=== PATIENT | male | born 1935 | race Hispanic/Latino ===

== ENCOUNTER 2016-12-24 11:31 | Observation (INO) | payer MEDICARE ==
[2016-12-24 11:34] VITALS: BMI 40.4
--- NOTE | 2016-12-24 11:58 | ED PDOC ---
Arrival/HPI - General Time Seen by Provider: 12/24/16 11:32 Historian: Patient - History of Present Illness Narrative History of Present Illness (Text): 12/24/16 11:44 Lloyd Kaur is a 81 year old male, whose past medical history includes diabetes, hypertension, hyperlipidemia, renal insufficiency, and colon cancer in remission, presents to the emergency department complaining of chest discomfort. Patient states that he woke up this morning with chest discomfort that radiates to his upper back and feels like a "pulled muscle". He also says he feels a pulsing sensation in his jaw. He notes a similar discomfort that was very intense last week as well and says his BP has been elevated at home. He notes that he is currently taking antibiotics for his dry cough. Patient denies shortness of breath, headache, dizziness, fever, chills, nausea, vomiting , diarrhea, diaphoresis, jaw pain, lower extremity pain/swelling, or other complaints. Decorating Inspector: Dr. Upton PMD: Dr. Briggs Time/Duration: Prior to Arrival Symptom Onset: Sudden Symptom Course: Unchanged Quality: Aching (back) Activities at Onset: Sleeping Modifying Factors (Text): None Context: Home Associated Symptoms (Text): backache Past Medical History - Provider Review Nursing Documentation Reviewed: Yes - Tetanus Immunization Tetanus Immunization: Unknown - Cardiac Hx Pacemaker: No - Neurological Hx Paralysis: No - Renal Hx Renal Failure: (renal insuff) - Endocrine/Metabolic Hx Diabetes Mellitus Type 2: Yes - Hematological/Oncological Hx Blood Transfusions: Yes Hx Blood Transfusion Reaction: No - Musculoskeletal/Rheumatological Hx Musculoskeletal Disorders: Yes - Genitourinary/Gynecological Hx Reproductive Disorders: No - Psychiatric Hx Substance Use: No - Surgical History Hx Joint Replacement: Yes (bilateral knees, left hip) Hx Orthopedic Surgery: Yes Other/Comment: filter - Anesthesia Hx Anesthesia Reactions: Yes Hx Malignant Hyperthermia: No - Suicidal Assessment Feels Threatened In Home Enviroment: No Family/Social History - Physician Review Nursing Documentation Reviewed: Yes Family/Social History: Unknown Family HX Smoking Status: Unknown If Ever Smoked Hx Alcohol Use: No Hx Substance Use: No Allergies/Home Meds Allergies/Adverse Reactions: Allergies No Known Allergies Allergy (Verified 12/24/16 11:58) Home Medications: Home Meds Medication Instructions Recorded Confirmed Furosemide [Lasix] 20 mg PO QAM 02/27/16 12/24/16 Glipizide [Glipizide ER] 10 mg PO QAM 02/27/16 12/24/16 Magnesium Oxide [Mgo] 400 mg PO BID 02/27/16 12/24/16 Valsartan [Diovan] 160 mg PO QAM 02/27/16 12/24/16 Warfarin [Coumadin] 7.5 mg PO ONCE 02/27/16 12/24/16 Allopurinol [Zyloprim] 100 mg PO DAILY 12/24/16 12/24/16 Warfarin [Coumadin] 10 mg PO 1800 12/24/16 12/24/16 Review of Systems - Review of Systems Constitutional: Normal. absent: Fevers Eyes: absent: Vision Changes ENT: Normal Respiratory: Cough (dry cough). absent: SOB Cardiovascular: Chest Pain Gastrointestinal: Normal. absent: Nausea, Vomiting Genitourinary Male: Normal. absent: Dysuria Musculoskeletal: Back Pain Skin: Normal Neurological: absent: Headache, Dizziness Endocrine: Normal Hemo/Lymphatic: Normal Psychiatric: Normal Physical Exam Vital Signs Reviewed: Yes Vital Signs Temp Pulse Pulse Resp BP Pulse Ox 12/24/16 11:48 98.1 F 74 17 158/77 H 96 12/24/16 11:35 72 Temperature: Afebrile Blood Pressure: Hypertensive Pulse: Regular Respiratory Rate: Normal Appearance: Positive for: Well-Appearing, Non-Toxic, Comfortable Pain Distress: None Mental Status: Positive for: Alert and Oriented X 3 - Systems Exam Head: Present: Atraumatic, Normocephalic Pupils: Present: PERRL Conjunctiva: Present: Normal Mouth: Present: Moist Mucous Membranes Pharnyx: Present: Normal. No: ERYTHEMA, EXUDATE, Peritonsilar Swelling Neck: Present: Normal Range of Motion Respiratory/Chest: Present: Clear to Auscultation, Good Air Exchange. No: Respiratory Distress, Accessory Muscle Use Cardiovascular: Present: Regular Rate and Rhythm, Normal S1, S2. No: Murmurs Abdomen: Present: Normal Bowel Sounds. No: Tenderness, Distention, Peritoneal Signs Back: Present: Normal Inspection Upper Extremity: Present: Normal Inspection. No: Cyanosis, Edema Lower Extremity: Present: Edema (trace edema bilaterally ) Neurological: Present: GCS=15, CN II-XII Intact, Speech Normal Skin: Present: Warm, Dry, Normal Color. No: Rashes Psychiatric: Present: Alert, Oriented x 3, Normal Insight, Normal Concentration Medical Decision Making ED Course and Treatment: 12/24/16 11:44 Impression: 81 year old male with chest pain discomfort that radiates to the back. Differential Diagnosis included but are not limited to: ACS vs. uncontrolled hypertension Plan: -- EKG -- Chest X-ray -- Urinalysis -- Labs -- Aspirin -- Reassess and disposition Progress Notes: EKG: Ordered, reviewed, and independently interpreted the EKG. Rate : 72 BPM Rhythm : NSR Interpretation : Multiple PVCs. First-degree AV block. QRS at 104. Normal axis. Inverted T wave and LVA is more pronounced with previous EKG. No ST/T changes. Comparison : 09/02/2014 Chest X-ray: No Acute Disease as read by me. 12/24/16 14:21 Patient with noted complaints. EKG is essentially unchanged from previous. First set of CE negative. Given the recurrence of discomfort over the past week and multiple ACS risk factors, will need further observation on tele and cardiology assessment. Patient reports some back pain as well but described as a pulling sensation and changes with position, so less likely to be dissection, the study for which is not easily obtainable given his renal insufficiency and should not get a CTA. Given asa here in the ED. Case discussed with Dr. Patel , covering Dr. Upton. - Lab Interpretations Lab Results: 12/24/16 12:34 12/24/16 12:34 Lab Results 12/24/16 12:34: Sodium 140, Potassium 4.5, Chloride 103, Carbon Dioxide 27, Anion Gap 15, BUN 26 H, Creatinine 1.5 H, Est GFR ( Amer) 55, Est GFR ( Non-Af Amer) 45, Random Glucose 141 H, Calcium 9.2, Magnesium 2.1, Total Bilirubin 0.9, AST 22, ALT 31, Alkaline Phosphatase 72, Lactate Dehydrogenase 404, Total Creatine Kinase 96, Troponin I < 0.01, NT-Pro-B Natriuret Pep 192, Total Protein 7.4, Albumin 4.0, Globulin 3.4, Albumin/Globulin Ratio 1.2, Lipase 152 12/24/16 12:34: PT 17.9 H, INR 1.66 H, APTT 35.2 H 12/24/16 12:34: WBC 6.8, RBC 4.34, Hgb 14.0, Hct 41.7 L, MCV 96.1, MCH 32.3, MCHC 33.6, RDW 14.8 H, Plt Count 120, MPV 11.4 H, Gran % 61.6, Lymph % (Auto) 31.0, Grand % (Auto) 6.6 H, Eos % (Auto) 0.7 L, Baso % (Auto) 0.1, Gran # 4.16, Lymph # 2.1, Grand # 0.5, Eos # 0.1, Baso # 0.01 I have reviewed the lab results: Yes - RAD Interpretation Radiology Orders: 12/24/16 12:17 CHEST TWO VIEWS (PA/LAT) [RAD] Stat Interior Design Teacher: ED Physician - EKG Interpretation Interpreted by ED Physician: Yes Type: 12 lead EKG - Medication Orders Current Medication Orders: Discontinued Medications Aspirin (Aspirin Chewable) 324 mg PO STAT STA Stop: 12/24/16 11:55 Last Admin: 12/24/16 12:11 Dose: 324 mg - Scribe Statement The provider has reviewed the documentation as recorded by the Scribe 12/24/2016 Jo Lehman Provider Scribe Attestation: All medical record entries made by the Scribe were at my direction and personally dictated by me. I have reviewed the chart and agree that the record accurately reflects my personal performance of the history, physical exam, medical decision making, and the department course for this patient. I have also personally directed, reviewed, and agree with the discharge instructions and disposition. Disposition/Present on Arrival - Present on Arrival Any Indicators Present on Arrival: Yes History of DVT/PE: Yes History of Uncontrolled Diabetes: Yes Urinary Catheter: No History Surgical Site Infection Followin - Disposition Have Diagnosis and Disposition been Completed?: Yes Diagnosis: Chest pain Disposition: HOSPITALIZED Disposition Time: 13:35 Patient Plan: Observation Condition: FAIR
[2016-12-24 12:40] LABS: BASO # 0.01 K/mm3 (0.0-2.0); BASO % 0.1 % (0.0-3.0); EOS # 0.1 (0.0-0.7); EOS % 0.7 % (1.5-5.0); GRAN # 4.16 (1.4-6.5); GRAN % 61.6 % (50.0-68.0); LYMPH # 2.1 (1.2-3.4); MEAN CELL VOLUME 96.1 fL (80.0-105.0); MEAN CORPUSCULAR HEMOGLOBIN 32.3 pg (25.0-35.0); MEAN CORPUSCULAR HGB CONC 33.6 g/dl (31.0-37.0); MEAN PLATELET VOLUME 11.4 fl (7.0-11.0); MONO # 0.5 (0.1-0.6); MONO % 6.6 % (1.0-6.0); PLATELET COUNT 120 10^3/uL (120.0-450.0); RBC 4.34 10^6/uL (3.5-6.1); RED CELL DISTRIBUTION WIDTH 14.8 % (11.5-14.5); WHITE BLOOD COUNT 6.8 10^3/ul (4.5-11.0)
[2016-12-24 12:50] LABS: ALB/GLOB RATIO 1.2 (1.1-1.8); ALT/SGPT 31 U/L (7-56); AST/SGOT 22 U/L (15-59); BLOOD UREA NITROGEN 26 mg/dL (7-21); CALCIUM 9.2 mg/dL (8.4-10.5); GFR AFRICAN-AMERICAN 55; GFR NON-AFRICAN AMERICAN 45; LIPASE 152 U/L (23-300); MAGNESIUM 2.1 mg/dL (1.7-2.2)
[2016-12-24 12:51] LABS: INR 1.66 (0.93-1.08); PARTIAL THROMBOPLASTIN TIME 35.2 Seconds (23.7-30.8); PROTHROMBIN TIME 17.9 Seconds (9.9-11.8)
[2016-12-24 13:00] LABS: B-TYPE NATRIURETIC PEPTIDE 192 pg/mL (0-450)
[2016-12-24 13:01] LABS: TROPONIN I < 0.01 ng/mL
--- NOTE | 2016-12-24 14:36 | RAD ---
HISTORY: chest pain COMPARISON: 12/20/2016 TECHNIQUE: Chest PA and lateral FINDINGS: LUNGS: No active pulmonary disease. PLEURA: No significant pleural effusion identified. No pneumothorax apparent. CARDIOVASCULAR: Normal. OSSEOUS STRUCTURES: No significant abnormalities. VISUALIZED UPPER ABDOMEN: Normal. OTHER FINDINGS: None. IMPRESSION: No active disease.
[2016-12-24] MEDS ORDERED: Insulin Reg-MEDIUM-Coverage SC SCH (16:30)
[2016-12-24] MEDS ORDERED: Pneumococcal 23-Valent Vaccine IM ONE (17:20)
[2016-12-24] MEDS ORDERED: Pantoprazole 40 mg EC Tab PO SCH (18:00)
--- NOTE | 2016-12-24 18:25 | CP.PCM.HP ---
<BernardGael rand - Last Filed: 12/24/16 18:38> History of Present Illness - History of Present Illness History of Present Illness: This patient is a 81 year old male who presented to the ED today complaining of symptoms of palpitations that woke him up from his sleep and mild chest pain. Patient states that he has experienced these symptoms before last week. When he called his primary (Dr. Hsieh) about the palpitation he told him to go to ED next time it happened. Patient described the pain as mild,dull, and non- radiating. Patient Denies any dizziness, lightheadedness, SOB, Abd Pain, N/V/D, constipation, motor or sensory loss, bowel incontinence, urinary incontinence, or blurry vision PMHx - HTN, Diabetes, HLD, Renal Insufficiency, Lumbar Spinal Stenosis, Lupus AC , and Colon Cancer (in remission) PSHx - B/L knee replacement, Left Hip Replacement, Colectemy Allergies - NKDA Recent Hospitilizations - Denies Fam Hx: Denies Social History. Denies Illicit Drugs/Alcohol. Drinks 1 or 2 cups of coffee a day. 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 Quit 40 years ago. Present on Admission - Present on Admission Any Indicators Present on Admission: No History of DVT/PE: No Review of Systems - Review of Systems All systems: reviewed and no additional remarkable complaints except - Constitutional Constitutional: As Per HPI - EENT Eyes: As Per HPI - Cardiovascular Cardiovascular: As Per HPI - Respiratory Respiratory: As Per HPI - Gastrointestinal Gastrointestinal: As Per HPI - Genitourinary Genitourinary: As Per HPI - Endocrine Endocrine: As Per HPI Past Patient History - Tetanus Immunizations Tetanus Immunization: Unknown - Past Social History Smoking Status: Former Smoker - CARDIAC Hx Cardiac Disorders: Yes Hx Cardia Arrhythmia: Yes (AFIB) Hx Hypercholesterolemia: Yes Hx Pacemaker: No Hx Peripheral Edema: Yes - PULMONARY Hx Respiratory Disorders: Yes (SMOKED CIGARETTES QUIT 40 YRS AGO.) - NEUROLOGICAL Hx Paralysis: No - RENAL Hx Chronic Kidney Disease: Yes Hx Renal Failure: (renal insuff) - ENDOCRINE/METABOLIC Hx Endocrine Disorders: Yes Hx Diabetes Mellitus Type 2: Yes - HEMATOLOGICAL/ONCOLOGICAL Hx Blood Transfusions: Yes Hx Blood Transfusion Reaction: No - INTEGUMENTARY Hx Dermatological Problems: Yes (BILATERAL LEG EDEMA PITTING +3SKIN DRYNESS) - MUSCULOSKELETAL/RHEUMATOLOGICAL Hx Musculoskeletal Disorders: Yes Hx Falls: Yes Hx Spinal Stenosis: Yes Hx Unsteady Gait: Yes - GENITOURINARY/GYNECOLOGICAL Hx Reproductive Disorders: No - PSYCHIATRIC Hx Psychophysiologic Disorder: No Hx Substance Use: No - SURGICAL HISTORY Hx Surgeries: Yes Hx Joint Replacement: Yes (bilateral knees, left hip) Hx Orthopedic Surgery: Yes Other/Comment: filter - ANESTHESIA Hx Anesthesia Reactions: Yes Hx Malignant Hyperthermia: No Meds Allergies/Adverse Reactions: Allergies Allergy/AdvReac Type Severity Reaction Status Date / Time No Known Allergies Allergy Verified 12/24/16 15:57 Physical Exam - Constitutional Appears: Non-toxic, No Acute Distress - Head Exam Head Exam: ATRAUMATIC, NORMOCEPHALIC - Eye Exam Eye Exam: EOMI - Respiratory Exam Respiratory Exam: Clear to Auscultation Bilateral. absent: Rales, Rhonchi, Wheezes, Stridor - Cardiovascular Exam Cardiovascular Exam: RRR, +S1, +S2. absent: JVD, +S4 - GI/Abdominal Exam GI & Abdominal Exam: Normal Bowel Sounds, Soft. absent: Organomegaly, Tenderness - Extremities Exam Extremities exam: Negative for: pedal edema, tenderness - Back Exam Additional comments: Paraspinal tendeness in Lumbar spine - Neurological Exam Neurological exam: Alert, CN II-XII Intact, Oriented x3 - Psychiatric Exam Psychiatric exam: Normal Affect, Normal Mood - Skin Skin Exam: Dry, Intact, Normal Color, Warm Results - Vital Signs Recent Vital Signs: Last Vital Signs Temp 98.8 F 12/24/16 16:55 Pulse 70 12/24/16 16:55 Resp 17 12/24/16 16:55 BP 152/90 H 12/24/16 16:55 Pulse Ox 96 12/24/16 15:28 - Labs Result Diagrams: 12/24/16 12:34 12/24/16 12:34 Assessment & Plan - Assessment and Plan (Free Text) Assessment: 81 year old male who presented with palpitations and mild dull chest pain. Admitted for R/O ACS Plan: 1. R/O ACS -EKG. F/U on Read -Troponin series (negative 1st set) -TSH Coumadin 10 -ASA (Given) -Telemetry -Heart Healthy Diet -Cardio Consult (Chelo) -CBC/CMP in AM 2. HTN -Cont Home medication of Diovan 3. Diabetes -Cont. Glipizide. 4.Lupus AC - Coumadin 5. CKD -Furosemide - Date & Time Date: 12/24/16 Time: 18:40 Decision To Admit - . Bed Request Type: Telemetry <Krystina Covington - Last Filed: 12/24/16 21:29> Results - Vital Signs Recent Vital Signs: Last Vital Signs Temp 96.5 F L 12/24/16 18:00 Pulse 76 12/24/16 18:00 Resp 20 12/24/16 18:00 BP 150/88 12/24/16 18:00 Pulse Ox 96 12/24/16 15:28 - Labs Result Diagrams: 12/24/16 12:34 12/24/16 12:34 Labs: Laboratory Results - last 24 hr 12/24/16 12/24/16 12/24/16 18:20 18:23 18:30 POC Glucose (mg/dL) 136 H Troponin I Free T4 1.00 TSH 3rd Generation 2.03 Urine Color Yellow Urine Appearance Clear Urine pH 6.0 Ur Specific [place] 1.025 Urine Protein 30 H Urine Glucose (UA) Negative Urine Ketones Negative Urine Blood Trace-intact H Urine Nitrate Negative Urine Bilirubin Negative Urine Urobilinogen 0.2 Ur Leukocyte Esterase Negative Urine RBC 1 - 3 Urine WBC 0 - 2 12/24/16 18:30 POC Glucose (mg/dL) Troponin I < 0.01 Free T4 TSH 3rd Generation Urine Color Urine Appearance Urine pH Ur Specific [place] Urine Protein Urine Glucose (UA) Urine Ketones Urine Blood Urine Nitrate Urine Bilirubin Urine Urobilinogen Ur Leukocyte Esterase Urine RBC Urine WBC Attending/Attestation - Attestation I have personally seen and examined this patient.: Yes I have fully participated in the care of the patient.: Yes I have reviewed all pertinent clinical information: Yes Notes (Text): 12/24/16 21:22 81 year old male with past medical history of hypertension, diabetes, CKD, and history of lupus AC on coumadin presents today with complaint of palpitations and chest pain. EKG showed SR with PVCs. Will admit to telemetry unit to rule out ACS. Continue with telemetry monitoring for arrythmias. Serial cardiac enzymes are ordered and cardiology evaluation is requested. He reports he had a recent echo within the past year with his senior laboratory technician which we can review in AM. TFTs are normal. Continue with home medications for hypertension and diabetes. CKD is stable. He is on anticoagulation with coumadin at 7.5 to 10 mg at home. INR is 1.66 so he will get 10 mg tonight and repeat INR in AM. Krystina Covington MD Hospitalist.
[2016-12-24 18:31] LABS: URINE BILIRUBIN NEGATIVE (NEGATIVE); URINE BLOOD TRACE-INTACT (NEGATIVE); URINE GLUCOSE (UA) NEGATIVE (NEGATIVE); URINE LEUKOCYTE ESTERASE NEGATIVE Leu/uL (NEGATIVE); URINE NITRATE NEGATIVE (NEGATIVE); URINE PROTEIN 30 mg/dL (<30 mg/dL); URINE UROBILINOGEN 0.2 E.U./dL (<1 E.U./dL)
[2016-12-24 18:41] LABS: URINE APPEARANCE CLEAR (CLEAR); URINE COLOR YELLOW (YELLOW)
[2016-12-24 18:53] LABS: URINE WBC 0 - 2 /hpf (0-6)
--- NOTE | 2016-12-24 19:06 | CARD ---
APPROVED REPORT EKG Measurement Heart [id number] <Conclusion> Sinus rhythm with 1st degree AV block with occasional premature ventricular complexes Otherwise normal ECG
[2016-12-25 04:38] LABS: ALB/GLOB RATIO 1.2 (1.1-1.8); ALBUMIN 3.8 g/dL (3.0-4.8); ALT/SGPT 32 U/L (7-56); AST/SGOT 24 U/L (15-59); BLOOD UREA NITROGEN 22 mg/dL (7-21); CALCIUM 8.9 mg/dL (8.4-10.5); GFR AFRICAN-AMERICAN 59; GFR NON-AFRICAN AMERICAN 49
[2016-12-25 04:41] LABS: BASO # 0.02 K/mm3 (0.0-2.0); BASO % 0.3 % (0.0-3.0); EOS # 0.2 (0.0-0.7); EOS % 2.3 % (1.5-5.0); GRAN # 3.23 (1.4-6.5); GRAN % 48.5 % (50.0-68.0); LYMPH # 2.7 (1.2-3.4); LYMPH % 40.8 % (22.0-35.0); MEAN CELL VOLUME 96.3 fL (80.0-105.0); MEAN CORPUSCULAR HEMOGLOBIN 32.3 pg (25.0-35.0); MEAN CORPUSCULAR HGB CONC 33.6 g/dl (31.0-37.0); MEAN PLATELET VOLUME 10.7 fl (7.0-11.0); MONO # 0.5 (0.1-0.6); MONO % 8.1 % (1.0-6.0); PLATELET COUNT 121 10^3/uL (120.0-450.0); RBC 4.33 10^6/uL (3.5-6.1); RED CELL DISTRIBUTION WIDTH 14.7 % (11.5-14.5); WHITE BLOOD COUNT 6.7 10^3/ul (4.5-11.0)
[2016-12-25 04:47] LABS: INR 1.63 (0.93-1.08); PARTIAL THROMBOPLASTIN TIME 34.4 Seconds (23.7-30.8); PROTHROMBIN TIME 17.6 Seconds (9.9-11.8)
[2016-12-25 04:55] LABS: TROPONIN I < 0.01 ng/mL
[2016-12-25 06:14] VITALS: O2SAT 98
[2016-12-25] MEDS ORDERED: Pantoprazole 40 mg EC Tab PO SCH (07:30)
[2016-12-25 09:04] LABS: HDL CHOLESTEROL 22 mg/dL (29-60)
[2016-12-25 09:15] LABS: LDL CHOLESTEROL 69 mg/dL (0-129)
[2016-12-25] MEDS ORDERED: GlipiZIDE 2.5 mg SR Tab PO SCH (10:00)
[2016-12-25] MEDS ORDERED: Non Formulary Medication (Valsartan [Diovan] 160 MG) PO SCH (10:00)
[2016-12-25] MEDS ORDERED: GlipiZIDE 10 mg SR Tab PO SCH (10:00)
[2016-12-25 12:39] VITALS: BP 165/83; PULSE 69; RESP 20; TEMP 98.3
--- NOTE | 2016-12-25 14:23 | CP.PCM.DIS ---
<Gael Stewart - Last Filed: 12/25/16 14:15> Provider - Provider Date of Admission: 12/24/16 13:50 Attending physician: Izaiah Aguirre MD Primary care physician: Kvng Briggs MD Consults: Cardio - Dr. Crockett/Dr. Upton Time Spent in preparation of Discharge (in minutes): 35 Hospital Course - Lab Results Lab Results: Most Recent Lab Values WBC 6.7 10^3/ul (4.5-11.0) 12/25/16 04:05 RBC 4.33 10^6/uL (3.5-6.1) 12/25/16 04:05 Hgb 14.0 gm/dL (14.0-18.0) 12/25/16 04:05 Hct 41.7 % (42.0-52.0) L 12/25/16 04:05 MCV 96.3 fL (80.0-105.0) 12/25/16 04:05 MCH 32.3 pg (25.0-35.0) 12/25/16 04:05 MCHC 33.6 g/dl (31.0-37.0) 12/25/16 04:05 RDW 14.7 % (11.5-14.5) H 12/25/16 04:05 Plt Count 121 10^3/uL (120.0-450.0) 12/25/16 04:05 MPV 10.7 fl (7.0-11.0) 12/25/16 04:05 Gran % 48.5 % (50.0-68.0) L 12/25/16 04:05 Lymph % (Auto) 40.8 % (22.0-35.0) H 12/25/16 04:05 Davidson % (Auto) 8.1 % (1.0-6.0) H 12/25/16 04:05 Eos % (Auto) 2.3 % (1.5-5.0) 12/25/16 04:05 Baso % (Auto) 0.3 % (0.0-3.0) 12/25/16 04:05 Gran # 3.23 (1.4-6.5) 12/25/16 04:05 Lymph # 2.7 (1.2-3.4) 12/25/16 04:05 Davidson # 0.5 (0.1-0.6) 12/25/16 04:05 Eos # 0.2 (0.0-0.7) 12/25/16 04:05 Baso # 0.02 K/mm3 (0.0-2.0) 12/25/16 04:05 PT 17.6 Seconds (9.9-11.8) H 12/25/16 04:05 INR 1.63 (0.93-1.08) H 12/25/16 04:05 APTT 34.4 Seconds (23.7-30.8) H 12/25/16 04:05 Sodium 140 mmol/L (132-148) 12/25/16 04:05 Potassium 4.1 mmol/L (3.6-5.0) 12/25/16 04:05 Chloride 102 mmol/L (98-107) 12/25/16 04:05 Carbon Dioxide 30 mmol/L (21-33) 12/25/16 04:05 Anion Gap 12 (10-20) 12/25/16 04:05 BUN 22 mg/dL (7-21) H 12/25/16 04:05 Creatinine 1.4 mg/dL (0.5-1.4) 12/25/16 04:05 Est GFR ( Amer) 59 12/25/16 04:05 Est GFR (Non-Af Amer) 49 12/25/16 04:05 POC Glucose (mg/dL) 210 mg/dL (65-110) H 12/25/16 11:17 Random Glucose 99 mg/dL (70-110) 12/25/16 04:05 Calcium 8.9 mg/dL (8.4-10.5) 12/25/16 04:05 Magnesium 2.1 mg/dL (1.7-2.2) 12/24/16 12:34 Total Bilirubin 0.8 mg/dL (0.2-1.3) 12/25/16 04:05 AST 24 U/L (15-59) 12/25/16 04:05 ALT 32 U/L (7-56) 12/25/16 04:05 Alkaline Phosphatase 65 U/L (38-133) 12/25/16 04:05 Lactate Dehydrogenase 387 U/L (333-699) 12/25/16 04:05 Total Creatine Kinase 155 U/L (35-230) 12/25/16 04:05 Troponin I < 0.01 ng/mL 12/25/16 04:05 NT-Pro-B Natriuret Pep 192 pg/mL (0-450) 12/24/16 12:34 Total Protein 7.1 g/dL (5.8-8.3) 12/25/16 04:05 Albumin 3.8 g/dL (3.0-4.8) 12/25/16 04:05 Globulin 3.3 gm/dL 12/25/16 04:05 Albumin/Globulin Ratio 1.2 (1.1-1.8) 12/25/16 04:05 Triglycerides 205 mg/dL (35-160) H 12/25/16 04:20 Cholesterol 123 mg/dL (130-200) L 12/25/16 04:20 LDL Cholesterol Direct 69 mg/dL (0-129) 12/25/16 04:20 HDL Cholesterol 22 mg/dL (29-60) L 12/25/16 04:20 Lipase 152 U/L (23-300) 12/24/16 12:34 Free T4 1.00 ng/dL (0.78-2.19) 12/24/16 18:30 TSH 3rd Generation 2.03 mIU/mL (0.46-4.68) 12/24/16 18:30 Urine Color Yellow (YELLOW) 12/24/16 18:20 Urine Appearance Clear (CLEAR) 12/24/16 18:20 Urine pH 6.0 (4.7-8.0) 12/24/16 18:20 Ur Specific [place] 1.025 (1.005-1.035) 12/24/16 18:20 Urine Protein 30 mg/dL (<30 mg/dL) H 12/24/16 18:20 Urine Glucose (UA) Negative mg/dL (NEGATIVE) 12/24/16 18:20 Urine Ketones Negative mg/dL (NEGATIVE) 12/24/16 18:20 Urine Blood Trace-intact (NEGATIVE) H 12/24/16 18:20 Urine Nitrate Negative (NEGATIVE) 12/24/16 18:20 Urine Bilirubin Negative (NEGATIVE) 12/24/16 18:20 Urine Urobilinogen 0.2 E.U./dL (<1 E.U./dL) 12/24/16 18:20 Ur Leukocyte Esterase Negative Willy/uL (NEGATIVE) 12/24/16 18:20 Urine RBC 1 - 3 /hpf (0-2) 12/24/16 18:20 Urine WBC 0 - 2 /hpf (0-6) 12/24/16 18:20 - Hospital Course Hospital Course: This is a 81 year old male with a PMH of HTN, HLD, Lupus AC, Colon CA (remission ) and lumbar spinal stenosis who was admitted for observation due to for palpitations and mild non-radiating chest pain. Patient symptoms had already resolved on arrival to the ED. Cardio was consulted. EKG showed non frequent PVC 's with 1st degree AV block but otherwise normal EKG. Trop x3 were negative. LDL and TSH were WNL. CXR showed no active disease Vitals are currently stable. Cardio has signed off on him. There will be no change in his home medications. Patient will follow up with PMD (Dr. Rucker) and Diabetes Nurse (Dr. Upton). Patient is agreeable with plan. Patient seen, reviewed, and discussed with Attending Gael Stewart PGY-1 - Date & Time of H&P Date of H&P: 12/25/16 Time of H&P: 14:26 Discharge Exam - Head Exam Head Exam: ATRAUMATIC, NORMOCEPHALIC - Eye Exam Eye Exam: EOMI - Neck Exam Additional comments: Absent Thyromegaly - Respiratory Exam Respiratory Exam: Clear to PA & Lateral, NORMAL BREATHING PATTERN. absent: Decreased Breath Sounds, Rales, Rhonchi, Wheezes, Respiratory Distress, Stridor - Cardiovascular Exam Cardiovascular Exam: RRR, +S1, +S2 - GI/Abdominal Exam GI & Abdominal Exam: Normal Bowel Sounds, Soft. absent: Tenderness - Extremities Exam Additional comments: No pedal edema - Back Exam Back exam: absent: paraspinal tenderness - Neurological Exam Neurological exam: Alert, Oriented x3 - Psychiatric Exam Psychiatric exam: Normal Affect, Normal Mood - Skin Skin Exam: Dry, Intact, Normal Color, Warm Discharge Plan - Follow Up Plan Condition: FAIR Disposition: HOME/ ROUTINE Instructions: Warfarin (By mouth), Chest Pain (DC) Referrals: Kvng Briggs MD [Primary Care Provider] - <Izaiah Aguirre - Last Filed: 12/28/16 14:58> Provider - Provider Date of Admission: 12/24/16 13:50 Attending physician: Izaiah Aguirre MD Primary care physician: Kvng Briggs MD Hospital Course - Lab Results Lab Results: Most Recent Lab Values WBC 6.7 10^3/ul (4.5-11.0) 12/25/16 04:05 RBC 4.33 10^6/uL (3.5-6.1) 12/25/16 04:05 Hgb 14.0 gm/dL (14.0-18.0) 12/25/16 04:05 Hct 41.7 % (42.0-52.0) L 12/25/16 04:05 MCV 96.3 fL (80.0-105.0) 12/25/16 04:05 MCH 32.3 pg (25.0-35.0) 12/25/16 04:05 MCHC 33.6 g/dl (31.0-37.0) 12/25/16 04:05 RDW 14.7 % (11.5-14.5) H 12/25/16 04:05 Plt Count 121 10^3/uL (120.0-450.0) 12/25/16 04:05 MPV 10.7 fl (7.0-11.0) 12/25/16 04:05 Gran % 48.5 % (50.0-68.0) L 12/25/16 04:05 Lymph % (Auto) 40.8 % (22.0-35.0) H 12/25/16 04:05 Davidson % (Auto) 8.1 % (1.0-6.0) H 12/25/16 04:05 Eos % (Auto) 2.3 % (1.5-5.0) 12/25/16 04:05 Baso % (Auto) 0.3 % (0.0-3.0) 12/25/16 04:05 Gran # 3.23 (1.4-6.5) 12/25/16 04:05 Lymph # 2.7 (1.2-3.4) 12/25/16 04:05 Davidson # 0.5 (0.1-0.6) 12/25/16 04:05 Eos # 0.2 (0.0-0.7) 12/25/16 04:05 Baso # 0.02 K/mm3 (0.0-2.0) 12/25/16 04:05 PT 17.6 Seconds (9.9-11.8) H 12/25/16 04:05 INR 1.63 (0.93-1.08) H 12/25/16 04:05 APTT 34.4 Seconds (23.7-30.8) H 12/25/16 04:05 Sodium 140 mmol/L (132-148) 12/25/16 04:05 Potassium 4.1 mmol/L (3.6-5.0) 12/25/16 04:05 Chloride 102 mmol/L (98-107) 12/25/16 04:05 Carbon Dioxide 30 mmol/L (21-33) 12/25/16 04:05 Anion Gap 12 (10-20) 12/25/16 04:05 BUN 22 mg/dL (7-21) H 12/25/16 04:05 Creatinine 1.4 mg/dL (0.5-1.4) 12/25/16 04:05 Est GFR ( Amer) 59 12/25/16 04:05 Est GFR (Non-Af Amer) 49 12/25/16 04:05 POC Glucose (mg/dL) 210 mg/dL (65-110) H 12/25/16 11:17 Random Glucose 99 mg/dL (70-110) 12/25/16 04:05 Calcium 8.9 mg/dL (8.4-10.5) 12/25/16 04:05 Magnesium 2.1 mg/dL (1.7-2.2) 12/24/16 12:34 Total Bilirubin 0.8 mg/dL (0.2-1.3) 12/25/16 04:05 AST 24 U/L (15-59) 12/25/16 04:05 ALT 32 U/L (7-56) 12/25/16 04:05 Alkaline Phosphatase 65 U/L (38-133) 12/25/16 04:05 Lactate Dehydrogenase 387 U/L (333-699) 12/25/16 04:05 Total Creatine Kinase 155 U/L (35-230) 12/25/16 04:05 Troponin I < 0.01 ng/mL 12/25/16 04:05 NT-Pro-B Natriuret Pep 192 pg/mL (0-450) 12/24/16 12:34 Total Protein 7.1 g/dL (5.8-8.3) 12/25/16 04:05 Albumin 3.8 g/dL (3.0-4.8) 12/25/16 04:05 Globulin 3.3 gm/dL 12/25/16 04:05 Albumin/Globulin Ratio 1.2 (1.1-1.8) 12/25/16 04:05 Triglycerides 205 mg/dL (35-160) H 12/25/16 04:20 Cholesterol 123 mg/dL (130-200) L 12/25/16 04:20 LDL Cholesterol Direct 69 mg/dL (0-129) 12/25/16 04:20 HDL Cholesterol 22 mg/dL (29-60) L 12/25/16 04:20 Lipase 152 U/L (23-300) 12/24/16 12:34 Free T4 1.00 ng/dL (0.78-2.19) 12/24/16 18:30 TSH 3rd Generation 2.03 mIU/mL (0.46-4.68) 12/24/16 18:30 Urine Color Yellow (YELLOW) 12/24/16 18:20 Urine Appearance Clear (CLEAR) 12/24/16 18:20 Urine pH 6.0 (4.7-8.0) 12/24/16 18:20 Ur Specific [place] 1.025 (1.005-1.035) 12/24/16 18:20 Urine Protein 30 mg/dL (<30 mg/dL) H 12/24/16 18:20 Urine Glucose (UA) Negative mg/dL (NEGATIVE) 12/24/16 18:20 Urine Ketones Negative mg/dL (NEGATIVE) 12/24/16 18:20 Urine Blood Trace-intact (NEGATIVE) H 12/24/16 18:20 Urine Nitrate Negative (NEGATIVE) 12/24/16 18:20 Urine Bilirubin Negative (NEGATIVE) 12/24/16 18:20 Urine Urobilinogen 0.2 E.U./dL (<1 E.U./dL) 12/24/16 18:20 Ur Leukocyte Esterase Negative Willy/uL (NEGATIVE) 12/24/16 18:20 Urine RBC 1 - 3 /hpf (0-2) 12/24/16 18:20 Urine WBC 0 - 2 /hpf (0-6) 12/24/16 18:20 Attending/Attestation - Attestation I have personally seen and examined this patient.: Yes I have fully participated in the care of the patient.: Yes I have reviewed all pertinent clinical information, including history, physical exam and plan: Yes Notes (Text): I have seen and examined the patient at bedside. Agree with the above note with the following additions/ exceptions: Briefly this is 81 year old male with history of hypertension, diabetes, CKD, and history of lupus AC on coumadin who presented for palpitations and chest pain. ACS was ruled out. He reports he had a recent echo in Dr Patel's office and have a plan for stress test next week scheduled by hadoop architect. TFTs are normal. Continue with home medications for hypertension and diabetes. CKD is stable. Upon discharge patient will follow up with Dr Herrmann and Dr Gross. Dr Izaiah Aguirre
--- NOTE | 2016-12-25 16:43 | CON ---
DATE: 12/25/2016 INDICATIONS: Chest pain. HISTORY OF PRESENT ILLNESS: This is a 81-year-old man, known to our practice, he admitted yesterday through the emergency room when he complained of palpations, chest and back discomfort. He had these symptoms for a week or so. He has seen Dr. Briggs in the office. When these symptoms reoccurred, he came to the emergency room. Subsequently, he has been comfortable on telemetry without recurrent symptoms and has had 3 negative troponins. He does not describe exertional chest pain, there is some dyspnea on exertion, however. There is no orthopnea, PND, syncope, presyncope, lightheadedness, dizziness or vertigo. No fever, chills, cough, septum production or hemoptysis. No abdominal pain, nausea, vomiting, diarrhea, constipation or melena. PAST MEDICAL HISTORY: Complex. He has diabetes, hypertension, hyperlipidemia, chronic kidney disease, lupus anticoagulant with a history of DVT with an IVC filter. He had a cecal mass and colon cancer resected couple of years ago. He has osteoarthritis, chronic obesity, bilateral total knee replacements, a left total hip replacement, spinal stenosis. MEDICATIONS AT THE TIME OF ADMISSION: Include warfarin, Diovan, glipizide, Lasix, magnesium oxide, pantoprazole, allopurinol. ALLERGIES: There are no known medication allergies. SOCIAL HISTORY: He lives at home. He is ambulatory. He does not smoke cigarettes. He does not drink alcohol. He has a history of cigarette smoking in the past. FAMILY HISTORY: Noncontributory. REVIEW OF SYSTEMS: A 10-point review of systems otherwise unremarkable except as noted above. PHYSICAL EXAMINATION GENERAL: He is a well-developed male, lying in bed on telemetry, in no acute distress. VITAL SIGNS: Notable for sinus rhythm, sinus bradycardia, PVCs. He is afebrile. Heart rate 56, blood pressure 139/70, respirations 18, O2 sat 98% on nasal cannula. HEENT: Reveals no neck vein distention, thyromegaly or carotid bruits. Mucous membrane moist. Conjunctivas are pink. NECK: Supple. LUNGS: Lung andre clear. HEART: Reveals normal 1st and 2nd heart sounds. Soft systolic murmur along the left sternal border. ABDOMEN: Obese. Bowel sounds are present. No mass, organomegaly, tenderness, rebound, guarding. No CVA tenderness. No palpable abdominal aortic aneurysm. EXTREMITIES: Revealed extensive varicose veins. There is mild pedal edema. NEUROLOGICAL: He is awake, alert, oriented and intact. PHYSIATRIC: Normal as to mood and affect. SKIN: Warm and dry. No rashes or cellulitis. LABORATORY AND IMAGING: EKG demonstrates regular sinus rhythm, first degree heart block, PVCs, no acute changes. No change from prior EKG. A chest x-ray revealed no active disease. CBC is unremarkable. PT 17.6, INR 1.63 and PTT 34.4. Electrolytes, BUN, creatinine, blood sugar, LFTs are unremarkable. Troponin is negative x4 sets. CK 96, BNP 192, lipase 152, TSH and free T4 are normal. IMPRESSION: The patient is a 81-year-old man with extensive medical problems presenting with chest and lower back discomfort, palpations, but no evidence of acute myocardial infraction. PLAN: I will review his old records. At this point, he can be out of bed. Early discharge is anticipated. I will arrange an outpatient nuclear stress test and follow up for him. He will continue his current medications. He will keep us informed of any additional symptoms. Since his INR is a bit low, I would give him extra warfarin today as well. Mina Patel MD MTDD
== END 2016-12-25 16:14 | disposition home or self-care (01) ==
LOC: ED 11:31 → ERH 13:50 → 2RNO 15:45
PROVIDERS: ADMIT Internal Medicine; ATTEND Hospitalist
DX: R07.89 Other chest pain (principal); R00.2 Palpitations; I49.3 Ventricular premature depolarization; I44.0 Atrioventricular block, first degree; M48.06 Spinal stenosis, lumbar region; I12.9 Hypertensive chronic kidney disease with stage 1 through stage 4 chronic kidney disease, or unspecified chronic kidney disease; E11.22 Type 2 diabetes mellitus with diabetic chronic kidney disease; N18.9 Chronic kidney disease, unspecified; E78.5 Hyperlipidemia, unspecified; M19.90 Unspecified osteoarthritis, unspecified site; D68.62 Lupus anticoagulant syndrome; E66.9 Obesity, unspecified; Z79.01 Long term (current) use of anticoagulants; Z96.653 Presence of artificial knee joint, bilateral; Z68.41 Body mass index [BMI] 40.0-44.9, adult; Z86.718 Personal history of other venous thrombosis and embolism; Z87.891 Personal history of nicotine dependence; Z85.038 Personal history of other malignant neoplasm of large intestine; Z96.642 Presence of left artificial hip joint; Z79.84 Long term (current) use of oral hypoglycemic drugs; Z23 Encounter for immunization
CPT/HCPCS: 36415; 71020; 80053; 80061; 81001; 82550; 82948; 83615; 83690; 83735; 83880; 84439; 84443; 84484; 85025; 85610; 85730; 90732; 93005; 99285; G0009; G0378

== ENCOUNTER 2016-12-28 09:45 | Observation (INO) | payer MEDICARE ==
--- NOTE | 2016-12-28 10:16 | ED PDOC ---
Arrival/HPI - General Chief Complaint: Chest Pain Time Seen by Provider: 12/28/16 09:59 Historian: Patient - History of Present Illness Narrative History of Present Illness (Text): 12/28/16 10:16 Patient is a 81 yo male, "borderline diabetic", quit smoking 40 years ago, presents to ED with episode of left sided chest pain sharp and stabbing upon awakening this am. Pain feels as if "something is pushing down on me" when he lays flat. States symptoms not associated with exertion, not associated with deep breaths. Denies any acute leg pain or swelling. Denies cough. Denies abdominal pain or urinary symptoms. Reports similar episode two weeks ago which resolved. Also reports an episode of pain four days ago, where he was admitted and evaluated and discharged with cardiology consultations. Past Medical History - Tetanus Immunization Tetanus Immunization: Unknown - Cardiac Hx Cardiac Disorders: Yes Hx Cardiac Arrhythmia: Yes (AFIB) Hx Pacemaker: No Hx Peripheral Edema: Yes - Pulmonary Hx Respiratory Disorders: Yes (SMOKED CIGARETTES QUIT 40 YRS AGO.) - Neurological Hx Paralysis: No - Renal Hx Renal Disorder: Yes Hx Renal Failure: (renal insuff) - Endocrine/Metabolic Hx Endocrine Disorders: Yes Hx Diabetes Mellitus Type 2: Yes - Hematological/Oncological Hx Blood Transfusions: Yes Hx Blood Transfusion Reaction: No - Integumentary Hx Dermatological Disorder: Yes (BILATERAL LEG EDEMA PITTING +3SKIN DRYNESS) - Musculoskeletal/Rheumatological Hx Musculoskeletal Disorders: Yes Hx Falls: Yes Hx Spinal Stenosis: Yes Hx Unsteady Gait: Yes - Genitourinary/Gynecological Hx Reproductive Disorders: No - Psychiatric Hx Psychophysiologic Disorder: No Hx Substance Use: No - Surgical History Hx Joint Replacement: Yes (bilateral knees, left hip) Hx Orthopedic Surgery: Yes Other/Comment: filter - Anesthesia Hx Anesthesia Reactions: Yes Hx Malignant Hyperthermia: No - Suicidal Assessment Feels Threatened In Home Enviroment: No Family/Social History Family/Social History: Unknown Family HX Smoking Status: Former Smoker Hx Alcohol Use: No Hx Substance Use: No Allergies/Home Meds Allergies/Adverse Reactions: Allergies No Known Allergies Allergy (Verified 12/28/16 09:48) Home Medications: Home Meds Medication Instructions Recorded Confirmed Furosemide [Lasix] 20 mg PO QAM 02/27/16 12/28/16 Glipizide [Glipizide ER] 10 mg PO QAM 02/27/16 12/28/16 Magnesium Oxide [Mgo] 400 mg PO BID 02/27/16 12/28/16 Valsartan [Diovan] 160 mg PO QAM 02/27/16 12/28/16 Warfarin [Coumadin] 7.5 mg PO ONCE 02/27/16 12/28/16 Allopurinol [Zyloprim] 100 mg PO DAILY 12/24/16 12/28/16 Warfarin [Coumadin] 10 mg PO 1800 12/24/16 12/28/16 Review of Systems - Review of Systems Constitutional: absent: Fatigue, Weight Change, Fevers, Night Sweats Eyes: absent: Vision Changes ENT: absent: Hearing Changes Respiratory: absent: SOB Cardiovascular: Chest Pain. absent: Palpitations, Edema, Calf Pain, SCHAEFER Gastrointestinal: absent: Abdominal Pain, Nausea, Vomiting, Hematochezia, Hematemesis Genitourinary Male: absent: Dysuria, Frequency Musculoskeletal: absent: Back Pain, Neck Pain Skin: absent: Rash Neurological: absent: Headache, Dizziness Endocrine: absent: Polyuria Hemo/Lymphatic: absent: Easy Bleeding Psychiatric: absent: Depression Physical Exam - Physical Exam Narrative Physical Exam (Text): Head: Atraumatic. Normocephalic. Eyes: PERRL. EOMI. Conjunctivae are not pale. ENT: Mucous membranes are moist and intact. Oropharynx is clear and symmetric. Neck: Supple. Full ROM. No JVD. No lymphadenopathy. Cardiovascular: Regular rate. Regular rhythm. No murmurs, rubs, or gallops. Distal pulses are 2+ and symmetric. Pulmonary/Chest: No evidence of respiratory distress. Clear to auscultation bilaterally. No wheezing, rales or rhonchi. Abdominal: Soft and non-distended. There is no tenderness. No rebound, guarding, or rigidity. No organomegaly. Good bowel sounds. Back: No CVA tenderness. Extremities: No edema. No cyanosis. No clubbing. Full range of motion in all extremities. No calf tenderness. Skin: Skin is warm and dry. No petechiae. No purpura. Neurological: Alert, awake, and oriented to person, place, time, and situation. Normal speech. Psychiatric: Good eye contact. Normal interaction, affect, and behavior. Vital Signs Reviewed: Yes Vital Signs Temp Pulse Pulse Resp BP Pulse Ox 12/28/16 16:29 65 18 174/91 H 96 12/28/16 15:12 98.8 F 68 18 164/86 H 96 12/28/16 13:17 71 18 142/73 95 12/28/16 11:37 66 18 158/76 H 95 12/28/16 09:46 77 12/28/16 09:45 98.7 F 72 19 159/88 H 94 L Temperature: Afebrile Appearance: Positive for: Non-Toxic Pain Distress: Mild Mental Status: Positive for: Alert and Oriented X 3 Finger Stick Blood Glucose: 151 Medical Decision Making ED Course and Treatment: Patient is diabetic, with history of intermittent chest pain over past several weeks. Initial EKG with no acute st elevations, initial troponin unrmarkable. Patient's recent admission from earlier in week reviewed, cardiology consultation reviewed. Patient has not had stress test or cardiac catheterization recently. Pain is persistent. Currently no respiratory distress, no pleuritic pain. No acute calf pain. Patient on Coumadin for history of "lupus". Reports also history of ivc filter. Denies acute calf pain or swelling. No vesicular rash noted. CXR with no pneumothorax. 12/28/16 11:09 Chest X-ray: Dictator : Rm Reyes MD FINDINGS: LUNGS:No infiltrate. Linear opacity at right base, unchanged, likely atelectasis versus scar. PLEURA:No evidence of pleural effusion. Left costophrenic angle is not included on this examination, however. No pneumothorax. CARDIOVASCULAR:Normal. OSSEOUS STRUCTURES:No significant abnormalities. VISUALIZED UPPER ABDOMEN:Normal. OTHER FINDINGS:None. IMPRESSION: No active disease. Plan to admit patient for telemetry observation due to persistent chest pain. Elevated creatinine noted, patient has prior hx of this. He denies urinary symptoms, no cva tenderness noted. No abdominal pain on palpation with serial exams. Pain not associated with eating or meals. No recent trauma reported. INR reviewed with patient. VQ scan ordered. 12/28/16 12:16 12/28/16 17:37 VQ scan as per radiologist read as "intermediate probability". These results reviewed with patient and family. INR results reviewed. Coumadin ordered. Currently denies shortness of breath. No bloody urine or stool. Will admit to telemetry for further monitoring, anticoagulation. I reviewed exam, labs, and imaging studies with pst supervisor Dr. Patel for cardiac consultation. CT, noncontrast, findings of chest also reviewed with patient as well as need for follow-up of possible lung nodule, follow-up instructions reviewed with patient. 12/28/16 17:39 - Lab Interpretations Lab Results: 12/28/16 10:50 12/28/16 11:01 Lab Results 12/28/16 11:01: Sodium 140, Potassium 4.6, Chloride 106, Carbon Dioxide 27, Anion Gap 12, BUN 36 H, Creatinine 1.8 H, Est GFR ( Amer) 44, Est GFR ( Non-Af Amer) 37, Random Glucose 141 H, Calcium 9.0, Total Bilirubin 0.7, AST 22 , ALT 24, Alkaline Phosphatase 66, Lactate Dehydrogenase 440, Total Creatine Kinase 137, Troponin I < 0.01, NT-Pro-B Natriuret Pep 137, Total Protein 7.1, Albumin 3.9, Globulin 3.3, Albumin/Globulin Ratio 1.2, Amylase 69, Lipase 298 12/28/16 10:56: Urine Color Yellow, Urine Appearance Clear, Urine pH 6.0, Ur Specific [place] 1.025, Urine Protein Trace H, Urine Glucose (UA) Negative, Urine Ketones Negative, Urine Blood Trace-lysed H, Urine Nitrate Negative, Urine Bilirubin Negative, Urine Urobilinogen 0.2, Ur Leukocyte Esterase Negative , Urine RBC 0 - 2, Urine WBC Negative, Ur Epithelial Cells 0 - 2, Urine Bacteria Neg 12/28/16 10:50: PT 18.4 H, INR 1.70 H, APTT 34.7 H 12/28/16 10:50: WBC 7.1, RBC 4.17, Hgb 13.4 L, Hct 39.9 L, MCV 95.7, MCH 32.1, MCHC 33.6, RDW 15.0 H, Plt Count 115 L, MPV 11.9 H, Gran % 58.5, Lymph % (Auto) 31.6, [place] % (Auto) 8.5 H, Eos % (Auto) 1.3 L, Baso % (Auto) 0.1, Gran # 4.15, Lymph # 2.2, [place] # 0.6, Eos # 0.1, Baso # 0.01 - RAD Interpretation Narrative RAD Interpretations (Text): 12/28/16 12:15 linear opacity right base, chest xray reading as per radiologist Radiology Orders: 12/28/16 10:04 CHEST PORTABLE [RAD] Stat 12/28/16 12:07 LUNG PERF & VENT SCAN [NM] Stat Cloak Room Attendant: Radiologist - EKG Interpretation EKG Interpretation (Text): 12/28/16 12:14 EKG at 10:11 normal sinus rhythm with first degree av block with occasional pvc Interpreted by ED Physician: Yes Type: 12 lead EKG - Medication Orders Current Medication Orders: Allopurinol (Zyloprim) 100 mg PO DAILY RICHARD Furosemide (Lasix) 20 mg PO QAM RICHARD Glipizide (Glucotrol Xl) 10 mg PO QAM RICHARD Heparin Sodium/Dextrose (Heparin 25,000 Units/250ml In D5w) 25,000 units in 250 mls @ 23.106 mls/hr IV .[id number] PRN; Protocol; 18 UNITS/KG/HR PRN Reason: ADJUST RATE PER PROTOCOL Last Admin: 12/28/16 17:15 Dose: 18 units/kg/hr, 23.106 mls/hr Losartan Potassium (Cozaar) 100 mg PO DAILY RICHARD Magnesium Oxide (Mag-Ox) 400 mg PO BID RICHARD Pantoprazole Sodium (Protonix Ec Tab) 40 mg PO BID RICHARD Warfarin Sodium (Coumadin) 10 mg PO 1800 RICHARD PRN Reason: Protocol Discontinued Medications Warfarin Sodium (Coumadin) 10 mg PO STAT STA PRN Reason: Protocol Stop: 12/28/16 16:00 Last Admin: 12/28/16 16:35 Dose: 10 mg Disposition/Present on Arrival - Present on Arrival Any Indicators Present on Arrival: No History of DVT/PE: No History of Uncontrolled Diabetes: No Urinary Catheter: No History of Decub. Ulcer: No History Surgical Site Infection Following: None - Disposition Have Diagnosis and Disposition been Completed?: Yes Diagnosis: Chest pain Disposition: HOSPITALIZED Disposition Time: 11:45 Patient Plan: Admission, Observation, Telemetry Patient Problems: Current Active Problems Problem Status Onset Chest pain Acute Condition: FAIR
--- NOTE | 2016-12-28 10:49 | RAD ---
HISTORY: chest pain COMPARISON: 12/24/2016 FINDINGS: LUNGS: No infiltrate. Linear opacity at right base, unchanged, likely atelectasis versus scar. PLEURA: No evidence of pleural effusion. Left costophrenic angle is not included on this examination, however. No pneumothorax. CARDIOVASCULAR: Normal. OSSEOUS STRUCTURES: No significant abnormalities. VISUALIZED UPPER ABDOMEN: Normal. OTHER FINDINGS: None. IMPRESSION: No active disease.
[2016-12-28 11:14] LABS: BASO # 0.01 K/mm3 (0.0-2.0); BASO % 0.1 % (0.0-3.0); EOS # 0.1 (0.0-0.7); EOS % 1.3 % (1.5-5.0); GRAN # 4.15 (1.4-6.5); GRAN % 58.5 % (50.0-68.0); HEMOGLOBIN 13.4 gm/dL (14.0-18.0); LYMPH # 2.2 (1.2-3.4); LYMPH % 31.6 % (22.0-35.0); MEAN CELL VOLUME 95.7 fL (80.0-105.0); MEAN CORPUSCULAR HEMOGLOBIN 32.1 pg (25.0-35.0); MEAN CORPUSCULAR HGB CONC 33.6 g/dl (31.0-37.0); MEAN PLATELET VOLUME 11.9 fl (7.0-11.0); MONO # 0.6 (0.1-0.6); MONO % 8.5 % (1.0-6.0); PLATELET COUNT 115 10^3/uL (120.0-450.0); RBC 4.17 10^6/uL (3.5-6.1); WHITE BLOOD COUNT 7.1 10^3/ul (4.5-11.0)
[2016-12-28 11:16] LABS: INR 1.7 (0.93-1.08); PARTIAL THROMBOPLASTIN TIME 34.7 Seconds (23.7-30.8); PROTHROMBIN TIME 18.4 Seconds (9.9-11.8)
[2016-12-28 11:16] LABS: URINE BILIRUBIN NEGATIVE (NEGATIVE); URINE BLOOD TRACE-LYSED (NEGATIVE); URINE GLUCOSE (UA) NEGATIVE (NEGATIVE); URINE LEUKOCYTE ESTERASE NEGATIVE Leu/uL (NEGATIVE); URINE NITRATE NEGATIVE (NEGATIVE); URINE PROTEIN TRACE mg/dL (<30 mg/dL); URINE UROBILINOGEN 0.2 E.U./dL (<1 E.U./dL)
[2016-12-28 11:17] LABS: URINE APPEARANCE CLEAR (CLEAR); URINE COLOR YELLOW (YELLOW)
[2016-12-28 11:26] LABS: URINE BACTERIA NEG (NEG); URINE EPITHELIAL CELLS 0 - 2 /hpf (0-5); URINE RBC 0 - 2 /hpf (0-2); URINE WBC NEGATIVE /hpf (0-6)
[2016-12-28 11:28] LABS: ALB/GLOB RATIO 1.2 (1.1-1.8); ALBUMIN 3.9 g/dL (3.0-4.8); ALT/SGPT 24 U/L (7-56); AMYLASE 69 U/L (35-125); AST/SGOT 22 U/L (15-59); BLOOD UREA NITROGEN 36 mg/dL (7-21); GFR AFRICAN-AMERICAN 44; GFR NON-AFRICAN AMERICAN 37; LIPASE 298 U/L (23-300)
[2016-12-28 11:39] LABS: B-TYPE NATRIURETIC PEPTIDE 137 pg/mL (0-450)
[2016-12-28 11:40] LABS: TROPONIN I < 0.01 ng/mL
--- NOTE | 2016-12-28 14:13 | CT ---
PROCEDURE: CT Chest without contrast HISTORY: persistent left sided chest pain COMPARISON: None. TECHNIQUE: Contiguous axial images were obtained through the chest without intravenous contrast enhancement. Sagittal and coronal reconstructions were performed. Radiation dose (DLP): 833.28 mGy-cm. This CT exam was performed using one or more of the following dose reduction techniques: Automated exposure control, adjustment of the mA and/or kV according to patient size, and/or use of iterative reconstruction technique. FINDINGS: LUNGS: No pulmonary infiltrate. 6 mm pleural-based nodule superior left lower lobe, likely focal pleural thickening. Nevertheless, recommend followup noncontrast chest CT examination in 6-12 months. No other pulmonary mass. Linear scar/atelectasis in right middle lobe and left lower lobe. MEDIASTINUM: Unremarkable thoracic aorta. No aneurysm. Normal-sized heart. Coronary arterial calcification. Dilatation of main pulmonary artery to 3.7 cm diameter. This may correlate with pulmonary arterial hypertension. No lymphadenopathy. PLEURA: No pleural fluid. No pneumothorax. BONES: No fracture. No destructive lesion. UPPER ABDOMEN: Fatty liver. Nonspecific 1.8 cm rounded low-attenuation lesion in the lateral segment of the left hepatic lobe. OTHER FINDINGS: None. IMPRESSION: No pulmonary infiltrate/ pleural effusion. Questionable pleural-based nodule versus focal pleural thickening, 6 mm, superior left lower lobe. Followup noncontrast chest CT 06-2011 months. Additional minor findings as above.
--- NOTE | 2016-12-28 15:11 | NM ---
PROCEDURE: Radionuclide ventilation and perfusion scan HISTORY: r/o PE COMPARISON: Not available TECHNIQUE: A pulmonary ventilation scan was performed utilizing 33.0 mCi of technetium 99 M DTPA aerosol, inhaled. A pulmonary perfusion scan was performed utilizing 4.0 mCi of technetium 99 M maa 8 administered intravenously. Views of the lungs were obtained in multiple projections. FINDINGS: There is single moderate perfusion defect seen in the posterior and RPO views, in the mid right lung, that does not conform to a segment. There is no corresponding defect on the ventilation scan. This is a moderate mismatch. This does not correspond any radiographic abnormality on plain chest rated. There are no other perfusion defects appreciated. IMPRESSION: Single moderate mismatched perfusion defect. This is consistent with intermediate probability for pulmonary embolism.
[2016-12-28] MEDS ORDERED: Heparin 25,000units in D5W 25,000 UNITS/250 ML BAG IV PRN ×2 (16:42→17:45)
[2016-12-28] MEDS ORDERED: Heparin 25,000units in D5W /250 ML BAG IV PRN (16:56)
--- NOTE | 2016-12-28 17:56 | CP.PCM.HP ---
<ANTIONE RIOS - Last Filed: 12/28/16 18:36> History of Present Illness - History of Present Illness History of Present Illness: Mr. 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 Patient states that he has had 3 episodes over the past 2 weeks for the same pain, and was just discharged [place] [facility] this past week for the same thing after being worked up. Pt states that he woke up this morning and felt the pain which remained for two hours and then resolved after him taking his blood pressure medication. Pt noted that his HR was 48, lower than his average 64 which he measures, and so he came into the ED. Pt describes the pain as a heaviness on his chest, and it is gradual in onset and its resolution. Pt denies fevers, sob, n/v/d. Pt states that due to his spinal stenosis and RA, he is basically immobile throughout the day. 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), HTN, CKD, borderline DM2, spinal stenosis, gout and RA PSHx: IVC filter, cholecystectomy SHx: former smoker All: NKDA Meds: Coumadin (10 and 7.5 mg), Diovan 160, Glipizide, Lasix 20, Allopurinol, PTX Present on Admission - Present on Admission Any Indicators Present on Admission: Yes History of DVT/PE: Yes History of Uncontrolled Diabetes: No Urinary Catheter: No Review of Systems - Review of Systems All systems: reviewed and no additional remarkable complaints except - Constitutional Constitutional: absent: Anorexia, Chills, Fever - EENT Eyes: absent: Change in Vision - Cardiovascular Cardiovascular: Chest Pain, Chest Pain at Rest. absent: Chest Pain with Activity, Diaphoresis, Dyspnea, Pain Radiating to Arm/Neck/Jaw, Palpitations - Respiratory Respiratory: absent: Cough, Dyspnea, Hemoptysis, Wheezing, Snoring, Stridor, Pain on Inspiration - Gastrointestinal Gastrointestinal: absent: Abdominal Pain, Coffee Ground Emesis, Diarrhea, Dysphagia - Musculoskeletal Musculoskeletal: As Per HPI, Arthralgias, Back Pain - Integumentary Integumentary: As Per HPI. absent: Bleeding Lesions, Lesions - Neurological Neurological: absent: Abnormal Movements, Abnormal Speech, Confusion, Convulsions, Dizziness, Frequent Falls, Lack of Coordination, Loss of Vision, Memory Loss, Paresthesias, Sensory Deficit, Syncope, Tingling, Tremor, Vertigo, Weakness - Psychiatric Psychiatric: As Per HPI. absent: Anxiety, Confusion, Depression, Difficulty Concentrating, Memory Loss, Panic Attacks Past Patient History - Tetanus Immunizations Tetanus Immunization: Unknown - Past Social History Smoking Status: Former Smoker - CARDIAC Hx Cardiac Disorders: Yes Hx Atrial Fibrillation: Yes Hx Cardia Arrhythmia: Yes (AFIB) Hx Hypertension: Yes Hx Pacemaker: No Hx Peripheral Edema: Yes - PULMONARY Hx Respiratory Disorders: Yes (SMOKED CIGARETTES QUIT 40 YRS AGO.) - NEUROLOGICAL Hx Paralysis: No - RENAL Hx Chronic Kidney Disease: Yes Hx Renal Failure: (renal insuff) - ENDOCRINE/METABOLIC Hx Endocrine Disorders: Yes Hx Diabetes Mellitus Type 2: Yes - HEMATOLOGICAL/ONCOLOGICAL Hx Blood Transfusions: Yes Hx Blood Transfusion Reaction: No - INTEGUMENTARY Hx Dermatological Problems: Yes (BILATERAL LEG EDEMA PITTING +3SKIN DRYNESS) - MUSCULOSKELETAL/RHEUMATOLOGICAL Hx Musculoskeletal Disorders: Yes Hx Falls: Yes Hx Spinal Stenosis: Yes Hx Unsteady Gait: Yes - GENITOURINARY/GYNECOLOGICAL Hx Reproductive Disorders: No - PSYCHIATRIC Hx Psychophysiologic Disorder: No Hx Substance Use: No - SURGICAL HISTORY Hx Joint Replacement: Yes (bilateral knees, left hip) Hx Orthopedic Surgery: Yes Other/Comment: filter - ANESTHESIA Hx Anesthesia Reactions: Yes Hx Malignant Hyperthermia: No Meds Allergies/Adverse Reactions: Allergies Allergy/AdvReac Type Severity Reaction Status Date / Time No Known Allergies Allergy Verified 12/28/16 09:48 Physical Exam - Additional Findings Additional findings: - Constitutional Appears: Non-toxic, No Acute Distress - Head Exam Head Exam: ATRAUMATIC, NORMOCEPHALIC - Eye Exam Eye Exam: EOMI - Respiratory Exam Respiratory Exam: Clear to Auscultation Bilateral. absent: Rales, Rhonchi, Wheezes, Stridor - Cardiovascular Exam Cardiovascular Exam: RRR, +S1, +S2. absent: JVD, +S4 - GI/Abdominal Exam GI & Abdominal Exam: Normal Bowel Sounds, Soft. absent: Organomegaly, Tenderness - Extremities Exam Extremities exam: Negative for: pedal edema, tenderness - Back Exam Additional comments: Paraspinal tendeness in Lumbar spine - Neurological Exam Neurological exam: Alert, CN II-XII Intact, Oriented x3 - Psychiatric Exam Psychiatric exam: Normal Affect, Normal Mood - Skin Skin Exam: Dry, Intact, Normal Color, Warm Results - Vital Signs Recent Vital Signs: Last Vital Signs Temp 98.8 F 12/28/16 15:12 Pulse 65 12/28/16 16:29 Resp 18 12/28/16 16:29 BP 174/91 H 12/28/16 16:29 Pulse Ox 96 12/28/16 16:29 - Labs Result Diagrams: 12/28/16 10:50 12/28/16 11:01 Labs: Laboratory Results - last 24 hr 12/28/16 16:50 D-Dimer, Quantitative 0.34 Assessment & Plan - Assessment and Plan (Free Text) Plan: Mr. 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 1. Chest pain- PE vs ACS vs MSK, likely MSK - EKG shows NSR w/ 1st degree AV block and occasional PVC's - Troponins neg x1 (trend 2 more) - V/Q scan shows single moderate mismatch perfusion defect consistent with probability for PE - D-dimer 0.34, strong indication against PE - CT chest shows 6mm nodule superior LLL, recommend f/u CT in 6-12mo - Cardio consulted, recs appreciated 2. Risk of thrombosis 2/2 Lupus - INR 1.7 - daily INR checks - cont Coumadin 10mg - start heparin drip - pulm consulted, recs appreciated 3. HTN - continue Losartan 100mg, Lasix 20 4. DM2 - FS: 141 - continue Glipizide 10mg 5. CKD - Cr 1.8 6. gout - cont allopurinol PTX/ Coumadin, heparin HHD - Date & Time Date: 12/28/16 Time: 16:00 <Izaiah Aguirre - Last Filed: 12/29/16 15:25> Results - Vital Signs Recent Vital Signs: Last Vital Signs Temp 99.1 F 12/29/16 12:00 Pulse 70 07/23/17 12:00 Resp 20 12/29/16 12:00 BP 131/78 12/29/16 12:00 Pulse Ox 95 12/29/16 06:00 - Labs Result Diagrams: 12/29/16 07:00 12/29/16 07:00 Labs: Laboratory Results - last 24 hr 12/28/16 12/29/16 12/29/16 16:50 01:30 07:00 WBC RBC Hgb Hct MCV MCH MCHC RDW Plt Count MPV PT INR APTT 120.0 H* D-Dimer, Quantitative 0.34 Sodium 141 Potassium 4.6 Chloride 106 Carbon Dioxide 24 Anion Gap 16 BUN 28 H Creatinine 1.4 Est GFR ( Amer) 59 Est GFR (Non-Af Amer) 49 Random Glucose 130 H Calcium 9.0 Phosphorus 3.0 Magnesium 2.2 Lactate Dehydrogenase 551 Total Creatine Kinase 172 Troponin I < 0.01 12/29/16 12/29/16 12/29/16 07:00 07:00 09:34 WBC 6.8 RBC 4.31 Hgb 13.6 L Hct 41.1 L MCV 95.4 MCH 31.6 MCHC 33.1 RDW 14.8 H Plt Count 131 MPV 11.6 H PT 20.4 H INR 1.89 H APTT 86.0 H* D-Dimer, Quantitative Sodium Potassium Chloride Carbon Dioxide Anion Gap BUN Creatinine Est GFR ( Amer) Est GFR (Non-Af Amer) Random Glucose Calcium Phosphorus Magnesium Lactate Dehydrogenase Total Creatine Kinase Troponin I Attending/Attestation - Attestation I have personally seen and examined this patient.: Yes I have fully participated in the care of the patient.: Yes I have reviewed all pertinent clinical information: Yes Notes (Text): I have seen and examined the patient at bedside. Agree with the above note with the following additions/ exceptions: Briefly this is 81 year old male with history of hypertension, diabetes, CKD, and history of lupus AC on coumadin who presented for evaluation of chest pain which lasted for couple of hours. At home , his BP was noted to be high and he was bradycardic. In ED, he was found to have indeterminate VQ scan in the presence of subtherapeutic INR give history of DVT. He was admitted for observation overnight. He was started on heparin and coumadin. Pulm and cardio was consulted. There is a plan for outpatient stress test on 12/31/2016. TFTs are normal. Continue with home medications for hypertension and diabetes. CKD is stable. Upon discharge patient will follow up with Dr Herrmann and Dr Hall. Dr Izaiah Aguirre
--- NOTE | 2016-12-28 19:22 | CARD ---
APPROVED REPORT EKG Measurement Heart [id number] <Conclusion> Sinus rhythm with 1st degree AV block with occasional premature ventricular complexes and premature atrial complexes Otherwise normal ECG
[2016-12-28] MEDS: Pantoprazole 40 mg EC Tab PO SCH (20:49)
[2016-12-28] MEDS: Magnesium Oxide 400 mg Tab UD PO SCH (20:49)
[2016-12-28 21:43] VITALS: BMI 43.0
[2016-12-28 22:39] LABS: TROPONIN I < 0.01 ng/mL
[2016-12-29 01:45] VITALS: O2SAT 95
[2016-12-29 07:15] LABS: HEMOGLOBIN 13.6 gm/dL (14.0-18.0); MEAN CELL VOLUME 95.4 fL (80.0-105.0); MEAN CORPUSCULAR HEMOGLOBIN 31.6 pg (25.0-35.0); MEAN CORPUSCULAR HGB CONC 33.1 g/dl (31.0-37.0); MEAN PLATELET VOLUME 11.6 fl (7.0-11.0); RBC 4.31 10^6/uL (3.5-6.1); RED CELL DISTRIBUTION WIDTH 14.8 % (11.5-14.5); WHITE BLOOD COUNT 6.8 10^3/ul (4.5-11.0)
[2016-12-29 07:16] LABS: INR 1.89 (0.93-1.08); PROTHROMBIN TIME 20.4 Seconds (9.9-11.8)
--- NOTE | 2016-12-29 09:09 | CP.PCM.DIS ---
<MargretJazmyne - Last Filed: 12/29/16 10:23> Provider - Provider Date of Admission: 12/28/16 12:30 Attending physician: Iziaah Aguirre MD Primary care physician: Dr. Herrmann Consults: Cardiology: Dr. Upton Pulm: Dr. Salcido Time Spent in preparation of Discharge (in minutes): 35 Hospital Course - Lab Results Lab Results: Most Recent Lab Values WBC 6.8 10^3/ul (4.5-11.0) 12/29/16 07:00 RBC 4.31 10^6/uL (3.5-6.1) 12/29/16 07:00 Hgb 13.6 gm/dL (14.0-18.0) L 12/29/16 07:00 Hct 41.1 % (42.0-52.0) L 12/29/16 07:00 MCV 95.4 fL (80.0-105.0) 12/29/16 07:00 MCH 31.6 pg (25.0-35.0) 12/29/16 07:00 MCHC 33.1 g/dl (31.0-37.0) 12/29/16 07:00 RDW 14.8 % (11.5-14.5) H 12/29/16 07:00 Plt Count 131 10^3/uL (120.0-450.0) 12/29/16 07:00 MPV 11.6 fl (7.0-11.0) H 12/29/16 07:00 Gran % 58.5 % (50.0-68.0) 12/28/16 10:50 Lymph % (Auto) 31.6 % (22.0-35.0) 12/28/16 10:50 [place] % (Auto) 8.5 % (1.0-6.0) H 12/28/16 10:50 Eos % (Auto) 1.3 % (1.5-5.0) L 12/28/16 10:50 Baso % (Auto) 0.1 % (0.0-3.0) 12/28/16 10:50 Gran # 4.15 (1.4-6.5) 12/28/16 10:50 Lymph # 2.2 (1.2-3.4) 12/28/16 10:50 Runnels # 0.6 (0.1-0.6) 12/28/16 10:50 Eos # 0.1 (0.0-0.7) 12/28/16 10:50 Baso # 0.01 K/mm3 (0.0-2.0) 12/28/16 10:50 PT 20.4 Seconds (9.9-11.8) H 12/29/16 07:00 INR 1.89 (0.93-1.08) H 12/29/16 07:00 APTT 120.0 Seconds (23.7-30.8) H* 12/29/16 01:30 D-Dimer, Quantitative 0.34 mg/L FEU (0-0.50) 12/28/16 16:50 Sodium 140 mmol/L (132-148) 12/28/16 11:01 Potassium 4.6 mmol/L (3.6-5.0) 12/28/16 11:01 Chloride 106 mmol/L (98-107) 12/28/16 11:01 Carbon Dioxide 27 mmol/L (21-33) 12/28/16 11:01 Anion Gap 12 (10-20) 12/28/16 11:01 BUN 36 mg/dL (7-21) H 12/28/16 11:01 Creatinine 1.8 mg/dL (0.5-1.4) H 12/28/16 11:01 Est GFR ( Amer) 44 12/28/16 11:01 Est GFR (Non-Af Amer) 37 12/28/16 11:01 Random Glucose 141 mg/dL (70-110) H 12/28/16 11:01 Calcium 9.0 mg/dL (8.4-10.5) 12/28/16 11:01 Total Bilirubin 0.7 mg/dL (0.2-1.3) 12/28/16 11:01 AST 22 U/L (15-59) 12/28/16 11:01 ALT 24 U/L (7-56) 12/28/16 11:01 Alkaline Phosphatase 66 U/L (38-133) 12/28/16 11:01 Lactate Dehydrogenase 440 U/L (333-699) 12/28/16 11:01 Total Creatine Kinase 137 U/L (35-230) 12/28/16 11:01 Troponin I < 0.01 ng/mL 12/28/16 11:01 NT-Pro-B Natriuret Pep 137 pg/mL (0-450) 12/28/16 11:01 Total Protein 7.1 g/dL (5.8-8.3) 12/28/16 11:01 Albumin 3.9 g/dL (3.0-4.8) 12/28/16 11:01 Globulin 3.3 gm/dL 12/28/16 11:01 Albumin/Globulin Ratio 1.2 (1.1-1.8) 12/28/16 11:01 Amylase 69 U/L (35-125) 12/28/16 11:01 Lipase 298 U/L (23-300) 12/28/16 11:01 Urine Color Yellow (YELLOW) 12/28/16 10:56 Urine Appearance Clear (CLEAR) 12/28/16 10:56 Urine pH 6.0 (4.7-8.0) 12/28/16 10:56 Ur Specific [place] 1.025 (1.005-1.035) 12/28/16 10:56 Urine Protein Trace mg/dL (<30 mg/dL) H 12/28/16 10:56 Urine Glucose (UA) Negative mg/dL (NEGATIVE) 12/28/16 10:56 Urine Ketones Negative mg/dL (NEGATIVE) 12/28/16 10:56 Urine Blood Trace-lysed (NEGATIVE) H 12/28/16 10:56 Urine Nitrate Negative (NEGATIVE) 12/28/16 10:56 Urine Bilirubin Negative (NEGATIVE) 12/28/16 10:56 Urine Urobilinogen 0.2 E.U./dL (<1 E.U./dL) 12/28/16 10:56 Ur Leukocyte Esterase Negative Willy/uL (NEGATIVE) 12/28/16 10:56 Urine RBC 0 - 2 /hpf (0-2) 12/28/16 10:56 Urine WBC Negative /hpf (0-6) 12/28/16 10:56 Ur Epithelial Cells 0 - 2 /hpf (0-5) 12/28/16 10:56 Urine Bacteria Neg (NEG) 12/28/16 10:56 - Hospital Course Hospital Course: This is a 81Y M with PMH Lupus AC, DVT with IVC filter and on Coumadin at home , HTN, CKD, DM, gout, RA and spinal stenosis who was admitted for L lateral chest pain that is painful upon palpation. Patient was recently admitted to [facility] for similar symptoms and cardiac workup was negative. EKG showed NSR with 1st degree AV block and tropnin negative x 3. V/Q scan was indeterminate and Duplex U/S showed R chronic DVT. Patient was placed on heparin drip. Cardiology was consulted. Patient has a planned stress test on Friday. Cardiology reports patient is stable and can be d/c home. Pulmonology was also consulted. They report that patient is stable to go home on same dose of Coumadin. They would like his INR to be between 2.5-3.5, and he can get his INR checked as outpatient. CT chest showed a 6mm nodule on the LLL. Patient should get follow up CT chest in 6-12 months. Patient will continue his home medications and follow up with PMD, cardiology and pulmonology in 1 week. - Date & Time of H&P Date of H&P: 12/28/16 Time of H&P: 14:00 Discharge Exam - Head Exam Head Exam: ATRAUMATIC, NORMAL INSPECTION, NORMOCEPHALIC - Eye Exam Eye Exam: EOMI, Normal appearance, PERRL Pupil Exam: NORMAL ACCOMODATION, PERRL - ENT Exam ENT Exam: Mucous Membranes Moist - Respiratory Exam Respiratory Exam: Clear to PA & Lateral, NORMAL BREATHING PATTERN, UNREMARKABLE. absent: Rales, Rhonchi, Wheezes - Cardiovascular Exam Cardiovascular Exam: REGULAR RHYTHM, +S1, +S2. absent: Gallop, Rubs, Systolic Murmur - GI/Abdominal Exam GI & Abdominal Exam: Normal Bowel Sounds, Soft, Unremarkable. absent: Mass, Rebound, Rigid, Tenderness - Extremities Exam Extremities exam: normal inspection - Neurological Exam Neurological exam: Alert, CN II-XII Intact, Normal Gait, Oriented x3 - Psychiatric Exam Psychiatric exam: Normal Affect, Normal Mood - Skin Skin Exam: Dry, Intact, Normal Color, Warm Discharge Plan - Follow Up Plan Condition: FAIR Disposition: HOME/ ROUTINE Instructions: Angina (DC), Chest Pain (DC), Chest Pain (GEN) Additional Instructions: 1. Take Coumadin daily 2. Follow up with Dr. Herrmann in 1 week. 3. Follow up with Dr. Salcido and Dr. Upton in 1 week. 4. Continue Home medications 5. CT chest showed 6mm nodule in Left Lower Lobe of Lung. Repeat chest CT in 6- 12 months to monitor. Referrals: Virgil Salcido MD [Staff Provider] - Carmine Upton MD [Staff Provider] - Kvng Briggs MD [Staff Provider] - <Izaiah Aguirre - Last Filed: 12/29/16 15:32> Provider - Provider Date of Admission: 12/28/16 12:30 Attending physician: Izaiah Aguirre MD Hospital Course - Lab Results Lab Results: Most Recent Lab Values WBC 6.8 10^3/ul (4.5-11.0) 12/29/16 07:00 RBC 4.31 10^6/uL (3.5-6.1) 12/29/16 07:00 Hgb 13.6 gm/dL (14.0-18.0) L 12/29/16 07:00 Hct 41.1 % (42.0-52.0) L 12/29/16 07:00 MCV 95.4 fL (80.0-105.0) 12/29/16 07:00 MCH 31.6 pg (25.0-35.0) 12/29/16 07:00 MCHC 33.1 g/dl (31.0-37.0) 12/29/16 07:00 RDW 14.8 % (11.5-14.5) H 12/29/16 07:00 Plt Count 131 10^3/uL (120.0-450.0) 12/29/16 07:00 MPV 11.6 fl (7.0-11.0) H 12/29/16 07:00 Gran % 58.5 % (50.0-68.0) 12/28/16 10:50 Lymph % (Auto) 31.6 % (22.0-35.0) 12/28/16 10:50 R[place]els % (Auto) 8.5 % (1.0-6.0) H 12/28/16 10:50 Eos % (Auto) 1.3 % (1.5-5.0) L 12/28/16 10:50 Baso % (Auto) 0.1 % (0.0-3.0) 12/28/16 10:50 Gran # 4.15 (1.4-6.5) 12/28/16 10:50 Lymph # 2.2 (1.2-3.4) 12/28/16 10:50 Runnels # 0.6 (0.1-0.6) 12/28/16 10:50 Eos # 0.1 (0.0-0.7) 12/28/16 10:50 Baso # 0.01 K/mm3 (0.0-2.0) 12/28/16 10:50 PT 20.4 Seconds (9.9-11.8) H 12/29/16 07:00 INR 1.89 (0.93-1.08) H 12/29/16 07:00 APTT 86.0 Seconds (23.7-30.8) H* 12/29/16 09:34 D-Dimer, Quantitative 0.34 mg/L FEU (0-0.50) 12/28/16 16:50 Sodium 141 mmol/L (132-148) 12/29/16 07:00 Potassium 4.6 mmol/L (3.6-5.0) 12/29/16 07:00 Chloride 106 mmol/L (98-107) 12/29/16 07:00 Carbon Dioxide 24 mmol/L (21-33) 12/29/16 07:00 Anion Gap 16 (10-20) 12/29/16 07:00 BUN 28 mg/dL (7-21) H 12/29/16 07:00 Creatinine 1.4 mg/dL (0.5-1.4) 12/29/16 07:00 Est GFR ( Amer) 59 12/29/16 07:00 Est GFR (Non-Af Amer) 49 12/29/16 07:00 Random Glucose 130 mg/dL (70-110) H 12/29/16 07:00 Calcium 9.0 mg/dL (8.4-10.5) 12/29/16 07:00 Phosphorus 3.0 mg/dL (2.5-4.5) 12/29/16 07:00 Magnesium 2.2 mg/dL (1.7-2.2) 12/29/16 07:00 Total Bilirubin 0.7 mg/dL (0.2-1.3) 12/28/16 11:01 AST 22 U/L (15-59) 12/28/16 11:01 ALT 24 U/L (7-56) 12/28/16 11:01 Alkaline Phosphatase 66 U/L (38-133) 12/28/16 11:01 Lactate Dehydrogenase 551 U/L (333-699) 12/29/16 07:00 Total Creatine Kinase 172 U/L (35-230) 12/29/16 07:00 Troponin I < 0.01 ng/mL 12/29/16 07:00 NT-Pro-B Natriuret Pep 137 pg/mL (0-450) 12/28/16 11:01 Total Protein 7.1 g/dL (5.8-8.3) 12/28/16 11:01 Albumin 3.9 g/dL (3.0-4.8) 12/28/16 11:01 Globulin 3.3 gm/dL 12/28/16 11:01 Albumin/Globulin Ratio 1.2 (1.1-1.8) 12/28/16 11:01 Amylase 69 U/L (35-125) 12/28/16 11:01 Lipase 298 U/L (23-300) 12/28/16 11:01 Urine Color Yellow (YELLOW) 12/28/16 10:56 Urine Appearance Clear (CLEAR) 12/28/16 10:56 Urine pH 6.0 (4.7-8.0) 12/28/16 10:56 Ur Specific [place] 1.025 (1.005-1.035) 12/28/16 10:56 Urine Protein Trace mg/dL (<30 mg/dL) H 12/28/16 10:56 Urine Glucose (UA) Negative mg/dL (NEGATIVE) 12/28/16 10:56 Urine Ketones Negative mg/dL (NEGATIVE) 12/28/16 10:56 Urine Blood Trace-lysed (NEGATIVE) H 12/28/16 10:56 Urine Nitrate Negative (NEGATIVE) 12/28/16 10:56 Urine Bilirubin Negative (NEGATIVE) 12/28/16 10:56 Urine Urobilinogen 0.2 E.U./dL (<1 E.U./dL) 12/28/16 10:56 Ur Leukocyte Esterase Negative Willy/uL (NEGATIVE) 12/28/16 10:56 Urine RBC 0 - 2 /hpf (0-2) 12/28/16 10:56 Urine WBC Negative /hpf (0-6) 12/28/16 10:56 Ur Epithelial Cells 0 - 2 /hpf (0-5) 12/28/16 10:56 Urine Bacteria Neg (NEG) 12/28/16 10:56 Attending/Attestation - Attestation I have personally seen and examined this patient.: Yes I have fully participated in the care of the patient.: Yes I have reviewed all pertinent clinical information, including history, physical exam and plan: Yes Notes (Text): I have seen and examined the patient at bedside. Agree with the above note with the following additions/ exceptions: Briefly this is 81 year old male with history of hypertension, diabetes, CKD, and history of lupus AC on coumadin who presented for evaluation of chest pain. Serial enzymes and ekg was within normal limits. In ED, he was found to have indeterminate VQ scan in the presence of subtherapeutic INR . Patient was started on heparin and coumadin. INR today is 1.9. Discussed in detail with Dr Hutchinson and Dr Patel who agreed to discharge patient today.There is a plan for outpatient stress test on 12/31/2016. TFTs are normal. Continue with home medications for hypertension and diabetes. CKD is stable. Upon discharge patient will follow up with Dr Herrmann and Dr Hall. Dr Izaiah Aguirre
[2016-12-29 09:14] LABS: BLOOD UREA NITROGEN 28 mg/dL (7-21); GFR AFRICAN-AMERICAN 59; GFR NON-AFRICAN AMERICAN 49; MAGNESIUM 2.2 mg/dL (1.7-2.2)
[2016-12-29 09:31] LABS: TROPONIN I < 0.01 ng/mL
[2016-12-29] MEDS ORDERED: GlipiZIDE 10 mg SR Tab PO SCH (10:00)
[2016-12-29] MEDS ORDERED: GlipiZIDE 2.5 mg SR Tab PO SCH (10:00)
[2016-12-29] MEDS ORDERED: Non Formulary Medication (Valsartan [Diovan] 160 MG) PO SCH (10:00)
[2016-12-29] MEDS: Magnesium Oxide 400 mg Tab UD PO SCH (10:26)
[2016-12-29] MEDS: Pantoprazole 40 mg EC Tab PO SCH (10:26)
--- NOTE | 2016-12-29 11:32 | CARD ---
APPROVED REPORT EKG Measurement Heart [id number] [place] [id number] <Conclusion> Sinus rhythm with 1st degree AV block Otherwise normal ECG
[2016-12-29 12:46] VITALS: BP 131/78; PULSE 70; RESP 20; TEMP 99.1
--- NOTE | 2016-12-29 13:57 | CON ---
DATE CONSULTATION: 12/29/2016 INDICATIONS: Chest pain. HISTORY OF PRESENT ILLNESS: This is a 81-year-old man known to me from recent [facility] admission who came to the emergency room yesterday with recurring left-sided chest discomfort similar to the chest discomfort he has been having for several weeks and which prompted a recent [facility] admission. At that time, there was no evidence of acute myocardial infarction or ischemia and no arrhythmia. An outpatient nuclear stress test has been scheduled for him this week. Yesterday, the pain recurred, he came to the emergency room, and apparently a V/Q scan was intermediate probability and he was started on heparin drip when his INR was 1.8. This morning, he is comfortable in bed. There is no chest pain. There is no shortness of breath. He denies orthopnea, PND, syncope, presyncope, lightheadedness, dizziness, vertigo, palpitations, edema, or claudication. PAST MEDICAL HISTORY: Complex. He has diabetes, hypertension, hyperlipidemia, chronic kidney disease, he has a history of DVT and IVC filter remotely with a lupus anticoagulant diagnosed. He has been on chronic Coumadin therapy. He has had a cecal mass resected. He has a history of osteoarthritis, bilateral total knee replacements, left total hip replacement, spinal stenosis, and he is a former smoker. PAST SURGICAL HISTORY: He has a gallbladder surgery. MEDICATIONS: At the time of admission, his medications include warfarin, Diovan, glipizide, Lasix, magnesium oxide, Protonix, and allopurinol. ALLERGIES: THERE ARE NO KNOWN MEDICATION ALLERGIES. SOCIAL HISTORY: He lives at home. He is ambulatory. He no longer smokes. He does not drink alcohol significantly. He is ambulatory. FAMILY HISTORY: Noncontributory. REVIEW OF SYSTEMS: A 10-point review of systems otherwise unremarkable except as noted above. PHYSICAL EXAMINATION: GENERAL: He is a well-developed male, lying in bed on telemetry, and in no acute distress. VITAL SIGNS: Unremarkable. He is in sinus rhythm 59 to 72 beats per minute. He is afebrile. Blood pressure 137/55, respirations 18, and O2 sat 95% on room air. HEENT: Reveals no neck vein distention, thyromegaly, or carotid bruits. Mucous membrane moist. Conjunctivae are pink. NECK: Supple. LUNGS: Lung andre clear. HEART: Reveals normal 1st and 2nd heart sounds. There is a soft systolic murmur along the left sternal border. ABDOMEN: Obese. Bowel sounds are present. No mass, organomegaly, tenderness, rebound, or guarding. No palpable abdominal aortic aneurysm. No CVA tenderness. EXTREMITIES: Revealed varicose veins with mild ankle edema. NEUROLOGICAL: He is awake, alert, and oriented. PSYCHIATRIC: Normal as to mood and affect. SKIN: Warm and dry. No rashes or cellulitis. LABORATORY AND IMAGING: EKG demonstrates regular sinus rhythm with PVCs, there is first-degree heart block, there is a leftward axis, and there are no acute changes. It is unchanged from a prior EKG. A portable chest x-ray revealed no active disease. A V/Q lung scan reveals intermediate probability for PE. A CT of the chest without contrast is unremarkable. No pulmonary infiltrate or plural effusion. There is a questionable pleural based nodule. White count normal, hemoglobin 13.6, hematocrit 41.1, and platelet count is 115,000 and repeat 131,000. PT 18.4, and INR 1.7 initially, this morning 20.4 and 1.8 respectively, PTT is 120 consistent with heparin therapy. D-dimer is 0.34. Electrolytes unremarkable. BUN 36 and creatinine 1.8. Blood sugar 141. LFTs are unremarkable. Troponin is negative. CK negative. Amylase and lipase unremarkable. IMPRESSION: Lloyd Kaur is a 81-year-old man admitted with recurring chest pain after a prior [facility] admission a few days ago. There is no evidence of acute myocardial infarction on initial EKG and enzymes. His lung scan done in the ER revealed intermediate probability. D-dimer was unremarkable. 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 PLAN: At this time, he was admitted to telemetry. I will recommend a pulmonary evaluation, which has been called to Dr. Salcido. He will get warfarin 10 mg today. I will discontinue heparin once the INR is therapeutic. Lower extremity venous Doppler has been ordered. I will continue his other medications including allopurinol, Protonix, magnesium oxide, and Lasix. He will get glipizide and losartan. I will review his old records and outpatient nuclear stress test is scheduled, although we may have to change the date because of his current admission. He can be out of bed. He will report any recurrent chest pain. I will repeat an EKG this morning. A troponin this morning is pending. I will follow along with you and make additional recommendation based on his clinical course. Mina Patel MD MTDD
--- NOTE | 2016-12-29 14:53 | CON ---
DATE: 12/29/2016 PULMONARY CONSULTATION Asked by Dr. Aguirre, hospitalist, to evaluate and treat this 81-year-old male, who was admitted to [facility] [place] emergency room with chief complaint of left-sided chest pain. HISTORY OF PRESENT ILLNESS: The patient experienced left-sided chest pain, which in his description was like a pulled muscle and chest pain was persistent, but this not increase on the respiration, did increase on motion. The pain did not increase on exertion. There was no increase in his shortness of breath on exertion either. There was cough and no hemoptysis. The patient had similar episode 2 weeks ago, which resolved. He also had some limited cardiac workup and probable will need additional cardiac workup, since he is in atrial fibrillation and he is on warfarin. PAST MEDICAL HISTORY: Atrial fibrillation, history of peripheral edema, history of spinal stenosis, history of renal insufficiency, positive for diabetes mellitus type 2. History of joint replacement bilateral knees and left hip and history of IVC filter placement. SOCIAL HISTORY: Former smoker, quit over 40 years ago. Non drinker and never used illicit drugs. FAMILY HISTORY: CAD, HTN ALLERGIES: No known allergies. HOME MEDICATIONS: Include furosemide, glipizide, valsartan, warfarin, allopurinol. REVIEW OF SYSTEMS: Which was conducted by reviewing all sources. CONSTITUTIONAL: Currently does not complain of chest pain and no shortness of breath. RESPIRATORY: Negative for shortness of breath. CARDIOVASCULAR: Positive for palpations and peripheral edema. GASTROINTESTINAL: Negative. The rest of the systems were reviewed and found to be negative. PHYSICAL EXAMINATION: GENERAL: He is awake, alert and in no acute distress. HEAD, EARS, EYES, NOSE, THROAT: Is within normal limits. NECK: Supple with no jugular vein distentions. CHEST: Symmetrical. HEART: S1 and S2, no S3, regular. LUNGS: Diminished breath sounds at both lung bases with few base of rhonchi, no wheezing. GASTROINTESTINAL: Soft, nontender. No organomegaly. EXTREMITIES: 1+ pedal edema and multiple surgical scars. SKIN: Clear with no cyanosis or no skin rashes. NEUROLOGIC: No focal deficits. VITAL SIGNS: His temperature is 97, pulse oximetry is 96% on room air. Blood pressure is 159/88. RADIOLOGY AND LABORATORY DATA: Reviewed. WBC is 7.1, hemoglobin of 13.4, platelet count is 115,000. Sodium 140, BUN is 36, potassium is 4.6 and creatinine 1.8. His D-dimmer is negative. Therefore, the review of electrocardiogram, no acute ischemic changes. VENTILATION AND PERFUSION: Lung scan reveals intermediate probability of pulmonary emboli. Portable chest x-ray, no acute infiltrates. CT scan of chest without contrast due to elevated creatinine, there is a 6 mm pleural based nodule, superior in left lower lobe likely focal pleural thickening. We will recommend followup non-contrast CT in 6 months. ASSESSMENT: 1. Chest pain. 2. Indeterminate ventilation perfusion scan. 3. Subtherapeutic INR. 4. Diabetes mellitus. 5. Leg edema. PLAN: The patient has improved. His INR is subtherapeutic, but currently is 1.9. His D-dimmer is negative, which is strong evidence against acute pulmonary emboli. The INR should be for this patient in the range of 2.5 to 3.5. I discussed it with Dr. Aguirre, she will adjust today's warfarin dose. The patient is still on heparin. If he remains stable, there is no indication for acute pulmonary emboli and having a filter in place and negative D-dimmer, all these data speaks against pulmonary embolism as a etiology of his chest pain. The patient will be discharged and followed up by cardiology as well as his attending. Julius Hutchinson MD MARVIN
--- NOTE | 2016-12-30 11:38 | US ---
HISTORY: Leg pain and swelling. Evaluate for DVT PHYSICIAN(S): Rm García MD. TECHNIQUE: Duplex sonography and color-flow Doppler with graded compression were used to evaluate the deep venous systems of both lower extremities. The exam is limited by body habitus and edema. The tibial veins are not well seen. 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 Right common femoral vein, proximal right deep femoral vein, and mid to distal right femoral vein are patent and compressible. The right popliteal vein is patent and compressible. The right tibial veins are not adequately seen. There is no sonographic evidence for deep venous thrombosis in the visualized segments of left lower extremity. 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
== END 2016-12-29 14:46 | disposition home or self-care (01) ==
LOC: ED 09:45 → ERH 12:30 → 2RNO 21:04
PROVIDERS: ADMIT Hospitalist; ATTEND Hospitalist
DX: R07.9 Chest pain, unspecified (principal); D68.62 Lupus anticoagulant syndrome; I12.9 Hypertensive chronic kidney disease with stage 1 through stage 4 chronic kidney disease, or unspecified chronic kidney disease; N18.9 Chronic kidney disease, unspecified; M48.00 Spinal stenosis, site unspecified; M19.90 Unspecified osteoarthritis, unspecified site; M10.9 Gout, unspecified; R60.0 Localized edema; E78.5 Hyperlipidemia, unspecified; M06.9 Rheumatoid arthritis, unspecified; E11.22 Type 2 diabetes mellitus with diabetic chronic kidney disease; I48.91 Unspecified atrial fibrillation; Z86.718 Personal history of other venous thrombosis and embolism; Z79.01 Long term (current) use of anticoagulants; Z96.653 Presence of artificial knee joint, bilateral; Z96.642 Presence of left artificial hip joint; Z87.891 Personal history of nicotine dependence
CPT/HCPCS: 36415; 71010; 71250; 78582; 80048; 80053; 81001; 82150; 82550; 83615; 83690; 83735; 83880; 84100; 84484; 85025; 85027; 85378; 85610; 85730; 93005; 93970; 99285; A9540; G0378; J1644

== ENCOUNTER 2018-03-17 07:58 | Day surgery (SDC) | payer MEDICARE ==
[2018-03-17 08:51] LABS: HEMOGLOBIN 14.3 g/dL (14.0-18.0); RBC 4.4 10^6/uL (3.5-6.1); WHITE BLOOD COUNT 7.2 10^3/ul (4.5-11.0)
[2018-03-17 08:52] LABS: BASO # 0.01 K/mm3 (0.0-2.0); BASO % 0.1 % (0.0-3.0); EOS # 0.1 (0.0-0.7); EOS % 1.7 % (1.5-5.0); GRAN # 4.47 (1.4-6.5); GRAN % 62.4 % (50.0-68.0); LYMPH # 1.8 (1.2-3.4); LYMPH % 25.6 % (22.0-35.0); MEAN CELL VOLUME 96.4 fl (80.0-105.0); MEAN CORPUSCULAR HEMOGLOBIN 32.5 pg (25.0-35.0); MEAN CORPUSCULAR HGB CONC 33.7 g/dl (31.0-37.0); MEAN PLATELET VOLUME 11.5 fl (7.0-11.0); MONO # 0.7 (0.1-0.6); MONO % 10.2 % (1.0-6.0); RED CELL DISTRIBUTION WIDTH 14.3 % (11.5-14.5)
[2018-03-17 08:58] LABS: INR 1.16; PROTHROMBIN TIME 13.4 SECONDS (9.4-12.5)
[2018-03-17] MEDS ORDERED: Propofol 10 mg/ml Inj (20 ML) ONE (10:20)
[2018-03-17 11:17] VITALS: RESP 18
[2018-03-17 11:23] VITALS: PULSE 73
--- NOTE | 2018-03-17 11:46 | CARD ---
APPROVED REPORT Date of service: 03/17/2018 EKG Measurement Heart [id number] <Conclusion> Sinus rhythm with 1st degree AV block with frequent premature ventricular complexes Prolonged QT Abnormal ECG
[2018-03-17 12:59] VITALS: BP 142/61; TEMP 98.4; O2SAT 96
== END 2018-03-17 12:42 | disposition home or self-care (01) ==
LOC: ENDO 07:58
PROVIDERS: ATTEND Internal Medicine Gastroenterology
DX: K62.1 Rectal polyp (principal); Z85.038 Personal history of other malignant neoplasm of large intestine; Z98.0 Intestinal bypass and anastomosis status; Z91.040 Latex allergy status; K21.0 Gastro-esophageal reflux disease with esophagitis; I12.9 Hypertensive chronic kidney disease with stage 1 through stage 4 chronic kidney disease, or unspecified chronic kidney disease; E11.22 Type 2 diabetes mellitus with diabetic chronic kidney disease; N18.9 Chronic kidney disease, unspecified; Z90.49 Acquired absence of other specified parts of digestive tract; Z79.84 Long term (current) use of oral hypoglycemic drugs; Z79.82 Long term (current) use of aspirin; Z79.01 Long term (current) use of anticoagulants; Z96.653 Presence of artificial knee joint, bilateral; K62.89 Other specified diseases of anus and rectum; K31.89 Other diseases of stomach and duodenum; D68.62 Lupus anticoagulant syndrome; Z86.718 Personal history of other venous thrombosis and embolism; M10.9 Gout, unspecified
CPT/HCPCS: 36415; 45380; 82948; 85025; 85610; 88305; 93005; J2001; J2704; J7040

== ENCOUNTER 2018-07-12 13:40 | Emergency (ER) | payer MEDICARE ==
[2018-07-12 13:40] VITALS: BMI 43.0
[2018-07-12 13:51] VITALS: RESP 18; TEMP 97.9
--- NOTE | 2018-07-12 14:29 | ED PDOC ---
Arrival/HPI - General Chief Complaint: Lower Extremity Problem/Injury Time Seen by Provider: 07/12/18 14:01 Historian: Patient - History of Present Illness Narrative History of Present Illness (Text): 07/12/18 14:39 A 83 year old male, whose past medical history includes diabetes type 2, systemic lupus erythematous, bilateral pitting leg edema (+3), gall bladder disease, presents to the emergency department complaining of right lower extremity numbness starting at approximately 11:30. Patient reports today he was sitting at home, and when he was about to get up, felt sudden numbness to right leg. States numbness radiates from knee to toe. Also, notes have toe injury with toe nail ripped off, and was treated for it recently. Patient denies any lower extremity pain, numbness in other areas, or any other complaints at this time. Mentions he takes Augmentin and Coumadin. Also, right leg is more swollen than left leg (more than baseline). PMD: Dr. Briggs Past Medical History - Provider Review Nursing Documentation Reviewed: Yes - Tetanus Immunization Tetanus Immunization: Unknown - Cardiac Hx Pacemaker: No - Pulmonary Hx Sleep Apnea: Yes - Neurological Hx Paralysis: No - HEENT Hx Cataracts: Yes - Renal Hx Renal Disorder: Yes Hx Renal Failure: (renal insuff) - Endocrine/Metabolic Hx Diabetes Mellitus Type 2: Yes Hx Systemic Lupus Erythematosus: Yes - Hematological/Oncological Hx Blood Disorders: Yes Hx Blood Transfusions: Yes (HAD FFP) Hx Blood Transfusion Reaction: No Other/Comment: Lupus AC - Integumentary Hx Dermatological Disorder: Yes (BILATERAL LEG EDEMA PITTING +3SKIN DRYNESS) - Musculoskeletal/Rheumatological Hx Musculoskeletal Disorders: Yes - Gastrointestinal Hx Gall Bladder Disease: Yes Hx Gastrointestinal Ulcer: Yes - Genitourinary/Gynecological Hx Reproductive Disorders: No - Psychiatric Hx Emotional Abuse: No Hx Physical Abuse: No Hx Substance Use: No - Surgical History Hx Orthopedic Surgery: Yes - Anesthesia Hx Anesthesia: Yes Hx Anesthesia Reactions: Yes Hx Malignant Hyperthermia: No - Suicidal Assessment Feels Threatened In Home Enviroment: No Family/Social History - Physician Review Nursing Documentation Reviewed: Yes Family/Social History: No Known Family HX Smoking Status: Former Smoker Hx Alcohol Use: Yes (SOCIAL) Hx Substance Use: No Allergies/Home Meds Allergies/Adverse Reactions: Allergies No Known Allergies Allergy (Verified 12/28/16 09:48) Home Medications: Home Meds Medication Instructions Recorded Confirmed Furosemide [Lasix] 20 mg PO QAM 02/27/16 03/17/18 Glipizide [Glipizide ER] 10 mg PO QAM 02/27/16 03/17/18 Magnesium Oxide [Mgo] 400 mg PO BID 02/27/16 03/17/18 Warfarin [Coumadin] 7.5 mg PO ONCE 02/27/16 03/17/18 Allopurinol [Zyloprim] 100 mg PO DAILY 12/24/16 03/17/18 Warfarin [Coumadin] 10 mg PO 1800 12/24/16 03/17/18 Aspirin [Adult Aspirin] 81 mg PO DAILY 03/11/18 03/17/18 Cholecalciferol (Vitamin D3) 1,000 units PO DAILY 03/11/18 03/17/18 [Vitamin D3] Cyanocobalamin [Vitamin B12 1000 1,000 mcg PO DAILY 03/11/18 03/17/18 mcg Tab] Losartan [Cozaar] 50 mg PO DAILY 03/11/18 03/17/18 Review of Systems - Physician Review All systems were reviewed & negative as marked: Yes - Review of Systems Musculoskeletal: Other (bilateral leg swelling, more right than left.) Neurological: Other (right lower extremity numbness radiating from knee to toe.) Physical Exam - Physical Exam Narrative Physical Exam (Text): Gen: VS reviewed, alert, well developed, well nourished, nontoxic, mild distress. ENT: normal pharynx. Eye: EOMI, PERRL. Neck: no JVD, supple, no adenopathy. CV: regular rate, regular rhythm, no rubs, no murmur, no gallops, S1, S2, pulses equal and strong. Pulm: no distress, clear to auscultation, no wheeze, no rhonchi, breath sounds equal, no rales. Abd: soft, nontender, no guarding, no rebound, no rigidity, normal bowel sounds. Ext: bilateral lower extremity edema (R>L), hard nodules present to right lower leg. no tenderness to palpation. there is mild redness noted to the 3rd toe and the nailbed without purulent drainage or fould odor. 3rd toenail completely avulsed. Skin: good color, no rash, no cyanosis. Psych: responds appropriately to questions, normal affect. Neuro: oriented x 3, CN2-12 intact grossly, motor intact, sensation intact. 07/12/18 15:56 Vital Signs Temp Pulse Resp BP Pulse Ox 07/12/18 13:41 97.9 F 76 18 167/71 H 96 Medical Decision Making ED Course and Treatment: 07/12/18 14:41 Impression: 83 year old male with right leg numbness. Plan: -- Labs -- Lower Extremity Ultrasound -- Reassess and disposition Progress Notes: - RAD Interpretation Radiology Orders: 07/12/18 14:20 DUPLEX LOWER EXTRM VEIN RIGHT [US] Stat - Scribe Statement The provider has reviewed the documentation as recorded by the [place] [facility] Provider Scribe Attestation: All medical record entries made by the Scribe were at my direction and personally dictated by me. I have reviewed the chart and agree that the record accurately reflects my personal performance of the history, physical exam, medical decision making, and the department course for this patient. I have also personally directed, reviewed, and agree with the discharge instructions and disposition. Disposition/Present on Arrival - Present on Arrival Any Indicators Present on Arrival: No History of DVT/PE: Yes History of Uncontrolled Diabetes: No Urinary Catheter: No History of Decub. Ulcer: No History Surgical Site Infection Following: None - Disposition Have Diagnosis and Disposition been Completed?: Yes Diagnosis: Paresthesia Disposition: HOME/ ROUTINE Disposition Time: 15:57 Patient Plan: Discharge Condition: STABLE Discharge Instructions (ExitCare): Paresthesias (DC) Additional Instructions: return for any new or worsening symptoms. follow up with your regular doctors as soon as possible. Forms: [employer] ([employer])
[2018-07-12 14:59] LABS: BASO # 0.02 K/mm3 (0.0-2.0); BASO % 0.3 % (0.0-3.0); EOS # 0.2 (0.0-0.7); EOS % 2.5 % (1.5-5.0); HEMOGLOBIN 13.9 g/dL (14.0-18.0); LYMPH # 2.3 (1.2-3.4); LYMPH % 30.5 % (22.0-35.0); MEAN CELL VOLUME 98.8 fl (80.0-105.0); MEAN CORPUSCULAR HEMOGLOBIN 32.4 pg (25.0-35.0); MEAN CORPUSCULAR HGB CONC 32.8 g/dl (31.0-37.0); MEAN PLATELET VOLUME 11.9 fl (7.0-11.0); MONO # 0.6 (0.1-0.6); MONO % 7.8 % (1.0-6.0); RBC 4.29 10^6/uL (3.5-6.1); RED CELL DISTRIBUTION WIDTH 14.2 % (11.5-14.5); WHITE BLOOD COUNT 7.5 10^3/uL (4.5-11.0)
[2018-07-12 15:02] LABS: ALB/GLOB RATIO 1.3 (1.1-1.8); ALBUMIN 4.1 g/dL (3.0-4.8); ALT/SGPT 15 U/L (7-56); AST/SGOT 22 U/L (17-59); BLOOD UREA NITROGEN 33 mg/dL (7-21); GFR NON-AFRICAN AMERICAN 58
[2018-07-12 16:01] VITALS: O2SAT 98
[2018-07-12 16:05] VITALS: BP 132/79; PULSE 72
--- NOTE | 2018-07-12 18:08 | US ---
PROCEDURE: Right lower extremity venous US HISTORY: Leg pain and swelling. Evaluate for DVT. PHYSICIAN(S): Rm García M.D. TECHNIQUE: Duplex sonography and color-flow Doppler with graded compression were used to evaluate the deep venous system of the right lower extremity. The exam is limited by edema. The tibial veins are not well FINDINGS: The visualized deep venous system of the right lower extremity is sonographically normal and compressible. Normal waveforms and augmentation are seen. There is no sonographic evidence for deep venous thrombosis in the visualized segments of the right lower extremity. IMPRESSION: 1. No sonographic evidence for deep venous thrombosis in the visualized segments of the right lower extremity. 2. Limited study.
== END 2018-07-12 16:03 | disposition home or self-care (01) ==
LOC: ED 13:40
DX: R20.2 Paresthesia of skin (principal); E11.9 Type 2 diabetes mellitus without complications; M32.9 Systemic lupus erythematosus, unspecified; Z87.891 Personal history of nicotine dependence

== ENCOUNTER 2018-11-03 10:34 | Outpatient (CLI) | payer MEDICARE | END 2018-11-03 10:35 | disposition home or self-care (01) | LOC: RAD 10:35 ==